=== PATIENT | female | born 1985 | race Hispanic/Latino ===

== ENCOUNTER 2022-03-16 06:51 | Emergency (ER) | payer OTHER, SELFPAY ==
[2022-03-16 07:07] VITALS: BP 118/70; PULSE 78; RESP 20; TEMP 36.7; O2SAT 97; BMI 42.0
[2022-03-16 07:43] VITALS: BP 118/74; PULSE 75; RESP 18; O2SAT 98
[2022-03-16 08:03] LABS: COVID19 -Nasal RAPID Negative (Negative)
--- NOTE | 2022-03-16 09:06 | ED.URI ---
HPI - URI/Sore Throat General Chief Complaint: Upper Respiratory Symptoms Stated Complaint: asthma; poss. sinus infection Time Seen by Provider: 03/16/22 08:49 Source: patient Mode of arrival: Ambulatory History of Present Illness HPI Narrative: Patient is a 36-year-old female who has history of asthma presents with nasal congestion body aches headache. She said multiple people at work have tested positive for COVID. She tested 4 days ago and was negative. But she is worried she might have it. She says that she uses Advair 3 times a day he has been doing it for years to help her with her breathing. She says albuterol does not help. She has had some increased difficulty breathing but she used her Advair prior to arrival and is feeling okay now. No cough Review of Systems Review of Systems Narrative: GENERAL: Denies chills, fatigue, malaise, fever, sweats, travel HEENT: See HPI RESPIRATORY: See HPI CARDIOVASCULAR: Denies chest pain, palpitations, orthopnea, edema GASTROINTESTINAL: Denies nausea, vomiting, abdominal pain, diarrhea, constipation, melena. : Denies dysuria, frequency, incontinence, hematuria, urinary retention, flank pain. MUSCULOSKELETAL: Denies weakness, joint pain, or bony pain SKIN: No rash, no erythema, no pruritus NEUROLOGIC: Denies weakness, dizziness, headache, numbness, change in speech, confusion PSYCHIATRIC: No concerning psychosocial issues. 12 point review of systems is negative except for those stated above and HPI Patient History Medical History (Updated 03/16/22 @ 09:21 by Brianna Lomeli DO) Asthma Social History Smoking Status: Never smoker Smoking Status: Never smoker Substance Use Type: does not use Exam Initial Vital Signs Initial Vital Signs: Vital Signs Temperature 98.1 F 03/16/22 07:07 Pulse Rate 78 03/16/22 07:07 Respiratory Rate 20 03/16/22 07:07 Blood Pressure 118/70 03/16/22 07:07 Pulse Oximetry 97 03/16/22 07:07 Oxygen Delivery Method 03/16/22 07:07 GENERAL: Pre 6-year-old appears to not feel well but no acute distress HEENT: Head atraumatic,EOMI, pupils reactive, face symmetric, moist mucous membranes CARDIOVASCULAR: Regular rate and rhythm without murmurs, rubs or gallops. RESPIRATORY: No respiratory distress speaks in full sentences without difficulty. Clear no wheezing rales or rhonchi. Good air movement. EXTREMITIES: Normal range of motion, no clubbing or edema. Neurovascularly intact NEUROLOGICAL: Alert and oriented x4. SKIN: Warm, dry, no laceration, no petechiae, no rashes or lesions. Course Orders Ordered: ED Orders 03/16/22 07:21 COVID19 -Nasal RAPID/Pre-Proc Stat Vital Signs Vital signs: Vital Signs - 8 hr 03/16/22 07:07 03/16/22 07:43 03/16/22 09:27 Temperature 98.1 F Pulse Rate 78 75 75 Respiratory Rate 20 18 18 Blood Pressure 118/70 118/74 118/70 Pulse Oximetry 97 98 98 Oxygen Delivery Method Room Air Room Air MDM - URI/Sore Throat Lab Data Labs: Lab Results 03/16/22 Range/Units 07:21 SARS-CoV-2 (PCR) Negative (Negative) MDM Narrative Medical decision making narrative: Patient has upper respiratory like symptoms. COVID test is negative. She is not hypoxic. Probably other virus. Recommended repeating COVID testing in 2 days just to be sure since she has had exposure at work. Discharge Plan Departure Patient Disposition: Home Clinical Impression: Upper respiratory infection Instructions: DI for Viral Upper Respiratory Infection -- Adult Activity Restrictions/Additional Instructions: *You have been diagnosed with upper respiratory infection *What to do: At this time her COVID test is negative. However I do recommend repeat home testing in about 2 days just to be sure because you have had exposure. Recommend pulse oximeter to monitor oxygen. Oxygen should be 91% or above. If it is below that you need to return to the emergency department *Continue to take medications as directed Advair to be used twice daily *Follow up with your primary care provider in 2-3 days or call [phone] *Return to ER if you should have increasing shortness of breath, not tolerating fluids or any new, worsening or concerning symptoms Stand Alone Forms: Work Release Note Visit Report Forms: Patient Portal/API
[2022-03-16 09:27] VITALS: BP 118/70; PULSE 75; RESP 18; O2SAT 98
== END 2022-03-16 09:33 | disposition home or self-care (01) ==
PROVIDERS: Emergency Provider Emergency Medicine
DX: J06.9 Acute upper respiratory infection, unspecified (principal); Z20.822 Contact with and (suspected) exposure to COVID-19
CPT/HCPCS: 87635; 99281; 99282; C9803

== ENCOUNTER 2022-03-20 23:25 | Emergency (ER) | payer OTHER, SELFPAY ==
[2022-03-20 23:32] VITALS: BP 142/66; PULSE 78; RESP 21; TEMP 37.1; O2SAT 100; BMI 43.0
--- NOTE | 2022-03-20 23:54 | DI.RAD.S_ITS ---
PROCEDURE: XR CHEST 2V INDICATIONS: eval for PNA TECHNIQUE: 2 views of the chest were acquired. COMPARISON: None. FINDINGS: Surgical changes and devices: None. Lungs and pleura: Lungs are clear. No pleural effusions or pneumothorax. Mediastinum: Mediastinal contours are normal. Heart size is normal. Bones and chest wall: No suspicious bony abnormalities. Soft tissues appear unremarkable. IMPRESSION: 1. No evidence of pneumonia. Dictated by: Dionicio Saucedo M.D. on 03/21/2022 at 0:39 Approved by: Dionicio Saucedo M.D. on 03/21/2022 at 0:40
--- NOTE | 2022-03-20 23:54 | ED.GENADULT ---
HPI - General Adult General Chief complaint: Upper Respiratory Symptoms Stated complaint: possible pnemonia Time Seen by Provider: 03/20/22 23:42 Source: patient Mode of arrival: Ambulatory History of Present Illness HPI narrative: 36-year-old female who was seen here in the emergency department several days ago for concern of a COVID exposure. Had a negative COVID test. She has a history of asthma. She states that she continues to have a productive cough and fatigue and shortness of breath on exertion. Review of Systems Constitutional Constitutional: Reports system reviewed and no additional complaints, except as documented ENT Ears, Nose, Mouth, and Throat: Reports system reviewed and no additional complaints, except as documented Respiratory Respiratory: Reports system reviewed and no additional complaints, except as documented Allergic/Immunologic Allergic/Immunologic: Reports system reviewed and no additional complaints, except as documented Patient History Medical History Asthma Social History Smoking Status: Never smoker Smoking Status: Never smoker Substance Use Type: does not use Exam Initial Vital Signs Initial Vital Signs: Vital Signs Temperature 98.8 F 03/20/22 23:32 Pulse Rate 78 03/20/22 23:32 Respiratory Rate 21 03/20/22 23:32 Blood Pressure 142/66 H 03/20/22 23:32 Pulse Oximetry 100 03/20/22 23:32 Oxygen Delivery Method 03/20/22 23:32 HENMT Head: normal to inspection and normocephalic Resp Effort & Inspection: normal respiratory effort Auscultation: clear to auscultation bilaterally Cardio Rate: regular rate Rhythm: regular rhythm Neuro General: patient alert and patient awake Course Orders Ordered: ED Orders 03/20/22 23:39 Respiratory Panel (Film Array) Stat 03/20/22 23:54 XR chest 2V Stat Vital Signs Vital signs: Vital Signs - 8 hr 03/20/22 23:32 03/21/22 00:49 Temperature 98.8 F Pulse Rate 78 64 Respiratory Rate 21 Blood Pressure 142/66 H 117/65 Pulse Oximetry 100 99 Oxygen Delivery Method Room Air Room Air Medical Decision Making Medical Records Medical records reviewed: Yes I reviewed the patient's medical records. Lab Data Lab results reviewed: Yes I reviewed the patient's lab results. Labs: Lab Results 03/20/22 Range/Units 23:39 Chlamy pneumoniae PCR Not detected (Not Detect) Adenovirus (PCR) Not detected (Not Detect) B. pertussis DNA (PCR) Not detected (Not Detecte) B.parapertussis DNA PCR Not detected (Not Detecte) Coronavirus OC43 (PCR) Not detected (Not Detect) Coronavirus HKU1 (PCR) Not detected (Not Detect) Coronavirus 229E (PCR) Not detected (Not Detect) SARS-CoV-2 (PCR) Not detected (Not Detecte) Coronavirus NL63 (PCR) Not detected (Not Detect) Human Metapneumovir PCR Not detected (Not Detect) Influenza Type A (PCR) Not detected (Not Detect) Influenza Type B (PCR) Not detected (Not Detect) M. pneumoniae (PCR) Not detected (Not Detect) Parainfluenza 1 (PCR) Not detected (Not Detect) Parainfluenza 2 (PCR) Not detected (Not Detect) Parainfluenza 3 (PCR) Not detected (Not Detect) Parainfluenza 4 (PCR) Not detected (Not Detect) RSV (PCR) Not detected (Not Detect) Entero/Rhino (PCR) Not detected (Not Detect) Imaging Data Chest x-ray: Radiologist's Impression: [address] [address] XRay Report Signed Patient: Cass Espinoza MR#: [id number] : 1985 Acct:[id number] Age/Sex: 36 / F Date of Service: 03/20/22 Loc: ED Accession Number: [id number] ?? Procedure: XR chest 2V Ordering Provider: Lester Messina D.O. PROCEDURE:? XR CHEST 2V ? INDICATIONS:? eval for PNA ? TECHNIQUE:? 2 views of the chest were acquired.? ? COMPARISON:? None. ? FINDINGS:? ? Surgical changes and devices:? None.? ? Lungs and pleura:? Lungs are clear.? No pleural effusions or pneumothorax.? ? Mediastinum:? Mediastinal contours are normal.? Heart size is normal.? ? Bones and chest wall:? No suspicious bony abnormalities.? Soft tissues appear unremarkable.? ? IMPRESSION:? ? 1. No evidence of pneumonia. ? ? Dictated by: Dionicio Saucedo M.D. on 03/21/2022 at 0:39 ? ? Approved by: Dionicio Saucedo M.D. on 03/21/2022 at 0:40?? [facility] Narrative Medical decision making narrative: Not hypoxic. No respiratory distress. Respiratory panel negative. Chest x-ray is negative. Clear lung exam. She is coughing. Afebrile. No indication for antibiotics. Suspect viral upper respiratory. No indication for admission to the hospital. Will have her continue with her current course of treatment. She is given return precautions. She expressed understanding agreement. Discharge Plan Departure Patient Disposition: Home Clinical Impression: Cough, Fatigue Instructions: Cough Activity Restrictions/Additional Instructions: Continue to take all of your medications as directed. Continue to take the Zyrtec. Contact your primary doctor for a follow-up. Return to the emergency department for any new or worsening symptoms. Visit Report Forms: Patient Portal/API
[2022-03-21 00:35] LABS: Adenovirus Not Detected (Not Detect); B. parapertussis Not Detected (Not Detecte); Bordetella pertussis Not Detected (Not Detecte); Chlamydophila pneumoniae Not Detected (Not Detect); Coronavirus 229E Not Detected (Not Detect); Coronavirus HKU1 Not Detected (Not Detect); Coronavirus NL 63 Not Detected (Not Detect); Coronavirus OC43 Not Detected (Not Detect); Human Metapneumovirus Not Detected (Not Detect); Human Rhinovirus/Enterovirus Not Detected (Not Detect); Influenza A Not Detected (Not Detect); Influenza B Not Detected (Not Detect); Mycoplasma pneumoniae Not Detected (Not Detect); Parainfluenza Virus 1 Not Detected (Not Detect); Parainfluenza Virus 2 Not Detected (Not Detect); Parainfluenza Virus 3 Not Detected (Not Detect); Parainfluenza Virus 4 Not Detected (Not Detect); Respiratory Syncytial Virus Not Detected (Not Detect); SARS- CoV-2 Not Detected (Not Detecte)
[2022-03-21 00:49] VITALS: BP 117/65; PULSE 64; O2SAT 99
== END 2022-03-21 00:52 | disposition home or self-care (01) ==
PROVIDERS: Emergency Provider Emergency Medicine
DX: R05.9 Cough, unspecified (principal); R53.83 Other fatigue
CPT/HCPCS: 71046; 87633; 99281; 99283

== ENCOUNTER 2022-06-10 02:06 | Emergency (ER) | payer OTHER, SELFPAY ==
[2022-06-10 02:13] VITALS: BP 139/70; PULSE 74; RESP 18; TEMP 36.5; O2SAT 93; BMI 41.0
--- NOTE | 2022-06-10 02:16 | ED_ITS ---
HPI - Abdominal Pain General Chief Complaint: Abdominal Pain Stated Complaint: ABD. PAIN/WEAK Time Seen by Provider: 06/10/22 02:13 Source: patient Mode of arrival: Ambulatory History of Present Illness HPI narrative: 36-year-old female nonsmoker with history of asthma presents with a chief complaint of crampy and colicky lower abdominal pain over the course of the day if not longer. She states there is no obvious provocation or palliation nor radiation of her symptoms. She is had constipation by and large but also some elements of diarrhea. She denies any change in her diet but states that she works for 10 hours and has very little to drink and is concerned she is dehydrated. She feels a bit weak but not dizzy. She denies chest pain or shortness of breath and has had no fever chills. She denies dysuria, frequency or urgency but states it she will be unable to pee for us because she has not had anything to drink Related Data Allergies Allergy/AdvReac Type Severity Reaction Status Date / Time No Known Drug Allergies Allergy Verified 06/10/22 02:16 Review of Systems Review of Systems Narrative: GENERAL: See HPI HEENT: Denies sinus pain, ear pain, sore throat, difficulty swallowing, dizziness. RESPIRATORY: Denies dyspnea, cough, wheezing, hemoptysis, sputum. CARDIOVASCULAR: Denies chest pain, palpitations, orthopnea, edema, GASTROINTESTINAL: See HPI : Denies dysuria, frequency, incontinence, hematuria, urinary retention. MUSCULOSKELETAL: denies weakness, joint pain, or bony pain SKIN: Denies rash, skin lesions, or other NEUROLOGIC: Denies weakness, headache, numbness, change in speech, confusion, seizures, incoordination. PSYCHIATRIC: No concerning psychosocial issues. 12 point review of systems is negative except for those stated above Patient History Medical History Asthma Social History Smoking Status: Never smoker Smoking Status: Never smoker Substance Use Type: does not use Exam Narrative Exam Narrative: GENERAL: [36] year old patient appears stated age. Well-developed patient, in mild distress. HEAD: Atraumatic. Normocephalic. EYES: Pupils equal round and reactive. Extraocular motions intact. No scleral icterus. No injection or drainage. ENT: Nose without bleeding, purulent drainage. Throat without erythema, tonsillar hypertrophy or exudate. Airway patent. NECK: Trachea midline. Non tender CARDIOVASCULAR: Regular rate and rhythm without murmurs, gallops, or rubs. RESPIRATORY: Clear to auscultation. Breath sounds equal bilaterally. No wheezes, rales, or rhonchi. GASTROINTESTINAL: Abdomen soft, non-tender, nondistended. Bowel sounds present in all 4 quadrants EXTREMITIES: No edema or joint tenderness. BACK: Nontender without deformity or crepitance. No flank tenderness. NEURO: AOx3. SKIN: No rash or erythema of visible areas Initial Vital Signs Initial Vital Signs: Vital Signs Temperature 97.7 F 06/10/22 02:13 Pulse Rate 74 06/10/22 02:13 Respiratory Rate 18 06/10/22 02:13 Blood Pressure 139/70 06/10/22 02:13 Pulse Oximetry 93 06/10/22 02:13 Oxygen Delivery Method 06/10/22 02:13 Course Orders Ordered: ED Orders 06/10/22 02:39 XR acute abdomen series Stat 06/10/22 02:45 Complete Blood Count AUTO DIFF Stat Comprehensive Metabolic Panel Stat Lipase Stat Test Serum,Qual Stat Discontinued Medications Sodium Chloride (Normal Saline 0.9%) 1,000 mls @ 1,000 mls/hr IV BOLUS ONE Stop: 06/10/22 03:38 Last Infusion: 06/10/22 05:16 Dose: 0 mls/hr Documented By: Admin: 06/10/22 03:04 Dose: 1,000 mls/hr Documented By: ALVARADO Reevaluation(s) Reevaluation #1: Patient has significant if not complete resolution of symptoms after above- stated therapies Vital Signs Vital signs: Vital Signs - 8 hr 06/10/22 02:13 Temperature 97.7 F Pulse Rate 74 Respiratory Rate 18 Blood Pressure 139/70 Pulse Oximetry 93 Oxygen Delivery Method Room Air MDM - Abdominal Pain Lab Data Result diagrams: 06/10/22 02:45 06/10/22 02:45 Labs: Lab Results 06/10/22 06/10/22 06/10/22 Range/Units 02:45 02:45 02:45 WBC 9.7 (4.5-11.0) X10^3/uL RBC 4.72 (4.0-5.2) X10^6/uL Hgb 14.1 (12.0-16.0) g/dL Hct 41.1 (36-46) % MCV 87.0 (80-100) fL MCH 29.8 (26-34) PG MCHC 34.3 (30-36) % RDW 13.7 (11.6-14.8) % Plt Count 354 (150-400) X10^3/uL Neut % (Auto) 56.7 (50-75) % Lymph % (Auto) 27.5 (25-40) % [place] % (Auto) 8.8 (3-14) % Eos % (Auto) 6.3 H (2-4) % Baso % (Auto) 0.7 (0-2) % Neut # (Auto) 5500 (8602-2880) /uL Lymph # (Auto) 2700 (4405-8666) /uL [place] # (Auto) 900 (0-900) /uL Eos # (Auto) 600 H (0-450) /uL Baso # (Auto) 100 (0-100) /uL Sodium 136 L (137-145) mmol/L Potassium 3.9 (3.4-5.1) mmol/L Chloride 102 (98-107) mmol/L Carbon Dioxide 29 (22-32) mmol/L BUN 18 H (7-17) mg/dL Creatinine 0.70 (0.52-1.04) mg/dL Estimated GFR > 60 (>60) mL/min BUN/Creatinine Ratio 25.7 H (6-22) Glucose 97 (70-100) mg/dL Calcium 8.7 (8.4-10.2) mg/dL Total Bilirubin 0.3 (0.2-1.3) mg/dL AST 29 (14-36) IU/L ALT 31 (<35) IU/L Alkaline Phosphatase 70 (38-126) U/L Total Protein 7.9 (6.3-8.2) g/dL Albumin 4.3 (3.5-5.0) g/dL Globulin 3.6 (1.7-4.1) g/dL Albumin/Globulin Ratio 1.2 (1.0-2.8) Lipase 109 (23-300) U/L Serum , Qual Negative (Negative) Point of care testing: Point of Care Testing Test Results Negative Urine Dip Bedside Urine Glucose Negative Bedside Urine Bilirubin - Negative Bedside Urine Ketone - Negative Urine Specific [place] 1.025 Bedside Urine Occult Blood +/- Bedside Urine pH 6.0 Bedside Urine Protein - Negative Bedside Urine Urobilinogen - Negative Bedside Urine Nitrite - Negative Bedside Urine Leukocytes - Negative Esterase Imaging Data Abdominal x-ray: My Impression: Nonspecific bowel gas pattern, no obstruction, large stool burden consistent with constipation MDM Narrative Medical decision making narrative: Patient with very reassuring history and physical exam. Labs are unremarkable, no sign of infection or significant abnormality, imaging suggestive of constipation. Patient reports feeling dehydrated but demonstrates no obvious sign of significant dehydration though she does feel great improvement after fluids. Abdominal pain is well controlled, she is tolerating orals and requesting discharge. Return precautions have been discussed and questions answered to her apparent satisfaction Discharge Plan Departure Patient Disposition: Home Clinical Impression: Abdominal pain Instructions: DI for Abdominal Pain-Adult Activity Restrictions/Additional Instructions: *You have been diagnosed with [ abdominal pain most likely due to constipation ] *What to do: *Take over the counter medications as directed: 1. Metamucil - is a bulk forming laxative and adds fiber 2. Colace - softens your stool 3. Dulcolax suppository - stimulates your bowels *Follow up with your primary care provider in 2-3 days, call for appointment *Return to ER if you should have any new, worsening or concerning symptoms *Drink plenty of water and eat foods high in fiber *Stay as active as you can as this helps move your bowels as well Stand Alone Forms: Work Release Note Visit Report Forms: Patient Portal/API
--- NOTE | 2022-06-10 02:39 | DI.RAD.S_ITS ---
PROCEDURE: XR ACUTE ABDOMEN SERIES INDICATIONS: colicky abdominal pain TECHNIQUE: One view chest and for views of the abdomen were acquired. COMPARISON: None. FINDINGS: Surgical changes and devices: None. Chest: Lungs are clear. Heart size is normal. No pleural effusions. No pneumoperitoneum. Abdomen: Bowel gas pattern is normal. No suspicious calcifications. Visualized solid organ contours appear normal. Large stool volume. Bones: No suspicious bony lesions. IMPRESSION: 1. No evidence of obstruction. 2. Large stool volume. No significant discrepancy from overnight interpretation Dictated by: Cong Gooden M.D. on 06/10/2022 at 7:02 Approved by: Cong Gooden M.D. on 06/10/2022 at 7:03
[2022-06-10 02:57] LABS: Add Manual Diff / Slide Review NO; Basophils Absolute Auto 100 /uL (0-100); Basophils Percent Auto 0.7 % (0-2); Eosinophils Absolute Auto 600 /uL (0-450); Eosinophils Percent Auto 6.3 % (2-4); Hematocrit 41.1 % (36-46); Hemoglobin 14.1 g/dL (12.0-16.0); Lymphocytes Absolute Auto 2700 /uL (1100-4500); Lymphocytes Percent Auto 27.5 % (25-40); Mean Corpuscular HGB Conc 34.3 % (30-36); Mean Corpuscular Hemoglobin 29.8 PG (26-34); Monocytes Absolute Auto 900 /uL (0-900); Monocytes Percent Auto 8.8 % (3-14); Neutrophils Absolute Auto 5500 /uL (1500-7000); Neutrophils Percent Auto 56.7 % (50-75); Platelet Count 354 X10^3/uL (150-400); Red Blood Cell Count 4.72 X10^6/uL (4.0-5.2); Red Cell Distribution Width 13.7 % (11.6-14.8); White Blood Cell Count 9.7 X10^3/uL (4.5-11.0)
[2022-06-10] MEDS: SODIUM CHLORIDE 0.9% 1,000 ML 1000 ML IV (03:04)
[2022-06-10 03:05] LABS: Alanine Aminotransferase 31 IU/L (<35); Albumin 4.3 g/dL (3.5-5.0); Albumin Globulin Ratio 1.2 (1.0-2.8); Alkaline Phosphatase 70 U/L (38-126); Aspartate Aminotransferase 29 IU/L (14-36); BUN Creatinine Ratio 25.7 (6-22); Bilirubin Total 0.3 mg/dL (0.2-1.3); Blood Urea Nitrogen 18 mg/dL (7-17); Calcium 8.7 mg/dL (8.4-10.2); Carbon Dioxide 29 mmol/L (22-32); Chloride 102 mmol/L (98-107); Estimated Glomerular Filt Rate > 60 mL/min (>60); Globulin 3.6 g/dL (1.7-4.1); Glucose 97 mg/dL (70-100); HEMOLYSIS 27 (0-50); Lipase 109 U/L (23-300); Potassium 3.9 mmol/L (3.4-5.1); Sodium 136 mmol/L (137-145); Total Protein 7.9 g/dL (6.3-8.2)
[2022-06-10 03:10] LABS: Pregnancy Test Serum,Qual Negative (Negative)
== END 2022-06-10 05:17 | disposition home or self-care (01) ==
PROVIDERS: Emergency Provider Emergency Medicine
DX: R10.30 Lower abdominal pain, unspecified (principal)
CPT/HCPCS: 36415; 74022; 80053; 81003; 81025; 83690; 84703; 85025; 99284

== ENCOUNTER 2022-06-22 00:52 | Emergency (ER) | payer OTHER, SELFPAY ==
[2022-06-22 01:13] VITALS: BP 112/58; PULSE 85; RESP 18; TEMP 36.2; O2SAT 99; BMI 41.0
== END 2022-06-22 01:33 | disposition left against medical advice (07) ==
PROVIDERS: Emergency Provider Emergency Medicine; PCP Physician Assistant
CPT/HCPCS: 99281

== ENCOUNTER 2022-06-23 04:48 | Emergency (ER) | payer OTHER, SELFPAY ==
--- NOTE | 2022-06-23 04:56 | DI.RAD.S_ITS ---
PROCEDURE: XR CHEST 2V INDICATIONS: shortness of breath TECHNIQUE: 2 views of the chest were acquired. COMPARISON: [facility], , XR CHEST 2V, 03/20/2022, 23:45. FINDINGS: Surgical changes and devices: None. Lungs and pleura: Lungs are clear. No pleural effusions or pneumothorax. Mediastinum: Mediastinal contours are normal. Heart size is normal. Bones and chest wall: No suspicious bony abnormalities. Soft tissues appear unremarkable. IMPRESSION: Normal two view chest x-ray Approved by: August Orr M.D. on 06/23/2022 at 6:42
[2022-06-23 04:58] VITALS: BP 121/58; PULSE 85; RESP 20; TEMP 36.9; O2SAT 95; BMI 37.0
--- NOTE | 2022-06-23 05:03 | ED.GENADULT ---
HPI - General Adult General Chief complaint: Shortness of Breath/Dyspnea Stated complaint: COUGH/ASTHMA Time Seen by Provider: 06/23/22 04:56 Source: patient Mode of arrival: Ambulatory History of Present Illness HPI narrative: 36-year-old woman with a history of asthma typically uses Advair and albuterol, recently [facility] to the [facility] and does not have an appointment with a new physician until Saturday of next week and has been out of her inhalers for the last 10 days. Her cough and wheeze has been getting progressively worse. She gets routinely tested for COVID at work and has continued to be negative. She does not describe fevers or myalgias. The cough is dry and sounds very much like asthma. She describes no chest pain, lower extremity edema, abdominal pain, vomiting, diarrhea. Related Data Previous Rx's Medication Instructions Recorded albuterol sulfate 90 mcg/actuation 2 puff inhalation Q6H PRN 06/23/22 aerosol inhaler shortness of breath or wheezing #8.5 grams fluticasone 100 mcg-salmeterol 50 1 inh inhalation BID #60 ea 06/23/22 mcg/dose blistr powdr for inhalation (Advair Diskus) methylprednisolone 4 mg tablets in 4 mg PO DAILY #21 ea 06/23/22 a dose pack (Medrol (Akash)) Allergies Allergy/AdvReac Type Severity Reaction Status Date / Time No Known Drug Allergies Allergy Verified 06/10/22 02:16 Review of Systems Review of Systems Narrative: Remainder of complete review of systems is otherwise unremarkable except for that included in the HPI. Patient History Medical History Asthma Social History Smoking Status: Never smoker Smoking Status: Never smoker Substance Use Type: does not use Exam Initial Vital Signs Initial Vital Signs: Vital Signs Temperature 98.5 F 06/23/22 04:58 Pulse Rate 85 06/23/22 04:58 Respiratory Rate 20 06/23/22 04:58 Blood Pressure 121/58 L 06/23/22 04:58 Pulse Oximetry 95 06/23/22 04:58 Oxygen Delivery Method 06/23/22 04:58 General: Healthy appearing, in no acute distress. Able to give a complete and coherent history. Well-nourished well-developed HEENT: Moist mucous membranes, normal sclera with reactive pupils, Respiratory: Able to speak in 5-6 word sentences, lungs with scattered wheezes in all lung reyes, dry cough, no consolidated findings, minimal accessory muscle use, Full and symmetrical air movement Cardiac: Regular rate and rhythm no murmurs no bruits Abdomen: Soft, nontender, good bowel tones, no flank pain Skin: Warm and dry, no rashes Neurologic: Grossly neurologically intact with no obvious asymmetries or abnormalities Extremities: No trauma, well perfused Psych: Cooperative, appropriate insight and affect Course Orders Ordered: ED Orders 06/23/22 04:56 XR chest 2V Stat Discontinued Medications Albuterol (Albuterol 2.5 Mg/3 Ml Neb (Adult)) 2.5 mg INH NOW ONE Stop: 06/23/22 05:08 Last Admin: 06/23/22 05:10 Dose: 2.5 mg Documented By: Albuterol (Albuterol 2.5 Mg/3 Ml Neb (Adult)) 2.5 mg INH NOW ONE Stop: 06/23/22 05:12 Last Admin: 06/23/22 05:12 Dose: 2.5 mg Documented By: Prednisone (Prednisone 20 Mg Tablet) 60 mg PO NOW ONE Stop: 06/23/22 05:09 Last Admin: 06/23/22 05:16 Dose: 60 mg Documented By: EB Vital Signs Vital signs: Vital Signs - 8 hr 06/23/22 04:58 06/23/22 05:07 Temperature 98.5 F Pulse Rate 85 83 Respiratory Rate 20 24 Blood Pressure 121/58 L Pulse Oximetry 95 Oxygen Delivery Method Room Air Room Air Medical Decision Making [facility] Narrative Medical decision making narrative: 36-year-old woman with asthma who has been out of her inhalers for 10 days and does not have an appointment with her primary care doctor for an additional 8 days. She states that when she typically gets to this point she benefits from Medrol Dosepak. She is not complaining of fever or myalgias and I do not suspect acute infectious etiology at this time. A will go ahead and refill her Advair, albuterol and a Medrol Dosepak. She is safe for discharge Discharge Plan Departure Patient Disposition: Home Clinical Impression: Asthma with exacerbation Instructions: DI for Asthma -- Adult Activity Restrictions/Additional Instructions: Thank you for coming in this evening I am sorry that your asthma seems to be flaring. I have refilled your Advair Diskus, albuterol inhaler and given you a Medrol Dosepak. Based under clinical exam I suspect that all of your symptoms are asthma related and am not worried about a bacterial pneumonia at this time. I encourage you to keep your appointment with your new primary care physician next week If you find that you are getting worse or develop any new symptoms, please feel free to return to the emergency department for further evaluation. Prescriptions: New fluticasone propion-salmeterol [Advair Diskus] 100-50 mcg/dose blister with device 1 inh inhalation BID Qty: 60 3RF albuterol sulfate 90 mcg/actuation HFA aerosol inhaler 2 puff inhalation Q6H PRN (Reason: shortness of breath or wheezing) Qty: 8.5 3RF methylprednisolone [Medrol (Akash)] 4 mg tablets,dose pack 4 mg PO DAILY Qty: 21 0RF Referrals: Gogo Lopez PA-C [Primary Care Provider] -
[2022-06-23 05:07] VITALS: PULSE 83; RESP 24
[2022-06-23] MEDS: ALBUTEROL 2.5 MG/3 ML NEB (ADULT) INH ×2 (05:10→05:12)
[2022-06-23] MEDS: predniSONE 20 MG TABLET 60 MG PO (05:16)
[2022-06-23 05:45] VITALS: PULSE 90; RESP 18; O2SAT 96
== END 2022-06-23 05:45 | disposition home or self-care (01) ==
PROVIDERS: Emergency Provider Emergency Medicine; PCP Physician Assistant
DX: J45.901 Unspecified asthma with (acute) exacerbation (principal)
CPT/HCPCS: 71046; 94640; 99283; J7613

== ENCOUNTER 2022-07-11 21:17 | Emergency (ER) | payer OTHER, SELFPAY ==
[2022-07-11] VITALS (10 sets, daily range): BP systolic 131–135; BP diastolic 64–66; PULSE 47–112; RESP 18–22; TEMP 37.3; O2SAT 88–100; BMI 41.0
[2022-07-11] MEDS: ALBUTEROL/IPRATROPIUM 3 ML AMPUL INH ×2 (21:47→22:18)
[2022-07-11] MEDS: ALBUTEROL 2.5 MG/3 ML NEB (ADULT) INH ×2 (21:49→22:18)
--- NOTE | 2022-07-11 23:25 | ED.SOB ---
HPI - SOB/Dyspnea General Chief Complaint: Shortness of Breath/Dyspnea Stated Complaint: asthma, cough Time Seen by Provider: 07/11/22 21:43 Source: patient Mode of arrival: Ambulatory Limitations: no limitations History of Present Illness HPI Narrative: Patient is a 36-year-old female history of asthma and allergies presenting today with increasing shortness of breath ongoing for last 2 days. She says that she has never been intubated but has been hospitalized for his at her asthma before. She previously had well-controlled asthma however she moved [place] it seems to have gotten worse. She said she stopped taking her allergy medicine over the weekend with her breathing got to be much worse over last 2 days. She did have some body aches but she has had multiple home negative COVID test no significant productive. She has now received multiple albuterol treatments prior to my evaluation in overall so that she is feeling significantly better. She was previously evaluated on June 23 for the same she also states that she ran out of her Advair and is waiting to see a primary care provider before it is getting refill. Related Data Previous Rx's Medication Instructions Recorded albuterol sulfate 90 mcg/actuation 2 puff inhalation Q6H PRN 06/23/22 aerosol inhaler shortness of breath or wheezing #8.5 grams fluticasone 100 mcg-salmeterol 50 1 inh inhalation BID #60 ea 06/23/22 mcg/dose blistr powdr for inhalation (Advair Diskus) methylprednisolone 4 mg tablets in 4 mg PO DAILY #21 ea 06/23/22 a dose pack (Medrol (Akash)) albuterol sulfate 90 mcg/actuation 2 puff inhalation Q4-6H PRN 07/11/22 aerosol inhaler shortness of breath or wheezing #8.5 grams fluticasone propionate 230 2 puff inhalation BID #12 grams 07/11/22 mcg-salmeterol 21 mcg/actuation HFA inhaler (Advair HFA) prednisone 20 mg tablet 40 mg PO DAILY #10 tabs 07/11/22 Allergies Allergy/AdvReac Type Severity Reaction Status Date / Time No Known Drug Allergies Allergy Verified 07/11/22 21:31 Review of Systems Review of Systems Narrative: GENERAL: Denies chills, fatigue, malaise, fever, sweats, travel HEENT: Denies sinus pain, ear pain, sore throat, difficulty swallowing, neck pain RESPIRATORY: See HPI CARDIOVASCULAR: Denies chest pain, palpitations, orthopnea, edema GASTROINTESTINAL: Denies nausea, vomiting, abdominal pain, diarrhea, constipation, melena. : Denies dysuria, frequency, incontinence, hematuria, urinary retention, flank pain. MUSCULOSKELETAL: Denies weakness, joint pain, or bony pain SKIN: No rash, no erythema, no pruritus NEUROLOGIC: Denies weakness, dizziness, headache, numbness, change in speech, confusion PSYCHIATRIC: No concerning psychosocial issues. 12 point review of systems is negative except for those stated above and HPI Patient History Medical History Asthma Social History Smoking Status: Never smoker Smoking Status: Never smoker alcohol intake frequency: 0-2 drinks per day Substance Use Type: does not use Exam Initial Vital Signs Initial Vital Signs: Vital Signs Temperature 99.2 F 07/11/22 21:27 Pulse Rate 94 H 07/11/22 21:27 Respiratory Rate 22 07/11/22 21:27 Blood Pressure 131/66 07/11/22 21:27 Pulse Oximetry 98 07/11/22 21:27 Oxygen Delivery Method 07/11/22 21:27 GENERAL: Pleasant alert 36-year-old female HEENT: Head atraumatic,EOMI, pupils reactive, face symmetric, moist mucous membranes CARDIOVASCULAR: Regular rate and rhythm without murmurs, rubs or gallops. RESPIRATORY: Coughing with deep breaths speaks in full sentences mild expiratory wheezing no respiratory distress ABDOMEN: Soft, nontender. Normoactive bowel sounds all 4 quadrants. No guarding or rebound. EXTREMITIES: Normal range of motion, no clubbing or edema. Neurovascularly intact NEUROLOGICAL: Alert and oriented x4.Normal gait and speech. SKIN: Warm, dry, no laceration, no petechiae, no rashes or lesions. Course Orders Ordered: ED Orders 07/11/22 21:31 RT Consult Eval and Treat NOW Discontinued Medications Albuterol (Albuterol 2.5 Mg/3 Ml Neb (Adult)) 2.5 mg INH NOW ONE Stop: 07/11/22 21:49 Last Admin: 07/11/22 21:49 Dose: 2.5 mg Documented By: BLF Albuterol (Albuterol 2.5 Mg/3 Ml Neb (Adult)) 2.5 mg INH NOW ONE Stop: 07/11/22 22:16 Last Admin: 07/11/22 22:18 Dose: 2.5 mg Documented By: BALTA Albuterol/Ipratropium (Albuterol/Ipratropium 3 Ml Ampul) 3 ml INH NOW ONE Stop: 07/11/22 21:44 Last Admin: 07/11/22 21:47 Dose: 3 ml Documented By: BALTA Albuterol/Ipratropium (Albuterol/Ipratropium 3 Ml Ampul) 3 ml INH NOW ONE Stop: 07/11/22 22:16 Last Admin: 07/11/22 22:18 Dose: 3 ml Documented By: BALTA Prednisone (Prednisone 20 Mg Tablet) 40 mg PO NOW ONE Stop: 07/11/22 23:26 Last Admin: 07/11/22 23:38 Dose: 40 mg Documented By: LAURA Vital Signs Vital signs: Vital Signs - 8 hr 07/11/22 21:27 07/11/22 21:53 07/11/22 22:21 Temperature 99.2 F Pulse Rate 94 H 93 H 112 H Respiratory Rate 22 18 18 Blood Pressure 131/66 Pulse Oximetry 98 96 96 Oxygen Delivery Method Room Air Room Air Room Air 07/11/22 21:27 07/11/22 21:30 07/11/22 22:00 Temperature Pulse Rate 94 H 92 H 98 H Respiratory Rate Blood Pressure Pulse Oximetry 97 98 100 Oxygen Delivery Method 07/11/22 22:30 07/11/22 23:00 07/11/22 23:30 Temperature Pulse Rate 109 H 47 L 111 H Respiratory Rate Blood Pressure Pulse Oximetry 100 88 L 95 Oxygen Delivery Method 07/11/22 23:39 07/11/22 23:40 Temperature Pulse Rate 109 H Respiratory Rate Blood Pressure 135/64 Pulse Oximetry 97 Oxygen Delivery Method MDM - SOB/Dyspnea MDM Narrative Medical decision making narrative: Patient has been out of her preventative medication stop taking allergy medication. Likely causing 2 recent exacerbations. She has had multiple negative COVID test no need to test her now. She overall is feeling better. She is offered marked however declines at this time. Her lungs sound okay she had an x-ray that was-2 weeks ago no need for repeating her x-ray. Discharge Plan Departure Patient Disposition: Home Clinical Impression: Asthma with exacerbation Instructions: DI for Asthma -- Adult Activity Restrictions/Additional Instructions: *You have been diagnosed with asthma exacerbation *What to do: At this time I do recommend she continue to take allergy medications. Please see a primary care provider *Continue to take medications as directed Advair 2 puffs by mouth twice a day and as needed for cough or week Albuterol 1-2 puffs every 4 hours if needed for shortness of breath or wheezing Prednisone 40 mg once a day for 5 days *Follow up with your primary care provider in 2-3 days or call [phone] *Return to ER if you should have increasing shortness of breath cough fevers or any new, worsening or concerning symptoms Prescriptions: New prednisone 20 mg tablet 40 mg PO DAILY Qty: 10 0RF albuterol sulfate 90 mcg/actuation HFA aerosol inhaler 2 puff INHALATION Q4-6H PRN (Reason: shortness of breath or wheezing) Qty: 8.5 0RF Advair HFA 230-21 mcg/actuation HFA aerosol inhaler 2 puff inhalation BID Qty: 12 0RF No Action fluticasone propion-salmeterol [Advair Diskus] 100-50 mcg/dose blister with device 1 inh inhalation BID Qty: 60 3RF albuterol sulfate 90 mcg/actuation HFA aerosol inhaler 2 puff inhalation Q6H PRN (Reason: shortness of breath or wheezing) Qty: 8.5 3RF methylprednisolone [Medrol (Akash)] 4 mg tablets,dose pack 4 mg PO DAILY Qty: 21 0RF Referrals: Gogo Lopez PA-C [Primary Care Provider] - Visit Report Forms: Patient Portal/API
[2022-07-11] MEDS: predniSONE 20 MG TABLET 40 MG PO (23:38)
== END 2022-07-11 23:59 | disposition home or self-care (01) ==
PROVIDERS: Emergency Provider Emergency Medicine; PCP Physician Assistant
DX: J45.901 Unspecified asthma with (acute) exacerbation (principal)
CPT/HCPCS: 94640; 99283; J7613

== ENCOUNTER 2022-07-13 11:35 | Emergency (ER) | payer OTHER, SELFPAY ==
[2022-07-13 12:19] VITALS: BP 124/79; PULSE 82; RESP 18; TEMP 36.8; O2SAT 96; BMI 41.0
--- NOTE | 2022-07-13 12:58 | DI.RAD.S_ITS ---
PROCEDURE: XR CHEST 2V INDICATIONS: cough TECHNIQUE: 2 views of the chest were acquired. COMPARISON: [facility], CR, XR CHEST 2V, 06/23/2022, 5:14. [facility], CR, XR CHEST 2V, 03/20/2022, 23:45. FINDINGS: Surgical changes and devices: None. Lungs and pleura: Lungs are clear except for a linear band of increased radiodensity within the right middle lobe, consistent with mild or early pneumonia in this clinical circumstance. No pleural effusions or pneumothorax. Mediastinum: Mediastinal contours are normal. Heart size is normal. Bones and chest wall: No suspicious bony abnormalities. Soft tissues appear unremarkable. IMPRESSION: Mild or early pneumonia right middle lobe. Dictated by: Dante Shepherd M.D. on 07/13/2022 at 13:16 Approved by: Dante Shepherd M.D. on 07/13/2022 at 13:17
--- NOTE | 2022-07-13 13:37 | ED.URI ---
HPI - URI/Sore Throat <Eugenio Earl PA-C - Last Filed: 07/13/22 14:57> General Chief Complaint: Upper Respiratory Symptoms Stated Complaint: Thinks pnuemonia, fever, green mucus Time Seen by Provider: 07/13/22 12:45 Source: patient Mode of arrival: Ambulatory History of Present Illness HPI Narrative: Patient is a 36-year-old female who presents to the emergency room today with complaint of chest pain shortness of breath productive cough of greenish patient's fatigue and sinus congestion sinus congestion. States these symptoms initially started on Saturday night. Admits to attending a wedding on Saturday. Also admits that she has sore throat and swelling that started on Saturday. States she was seen in this emergency room on Saturday for exacerbation of her asthma and her main concern at that time which has shortness of breath. At her emergency room visit she received nebulizers States that since then her symptoms of chest pain cough fatigue sinus congestion and shortness of breath return. Admits to having had exacerbation of asthma COVID and pneumonia in October of this year. Also admits to history of urinary tract infections and would like to have that ruled out today to Also brings her daughter in today and states her daughter has had cough and runny nose and she wanted to have her checked out too. Related Data Previous Rx's Medication Instructions Recorded albuterol sulfate 90 mcg/actuation 2 puff inhalation Q6H PRN 06/23/22 aerosol inhaler shortness of breath or wheezing #8.5 grams fluticasone 100 mcg-salmeterol 50 1 inh inhalation BID #60 ea 06/23/22 mcg/dose blistr powdr for inhalation (Advair Diskus) methylprednisolone 4 mg tablets in 4 mg PO DAILY #21 ea 06/23/22 a dose pack (Medrol (Akash)) albuterol sulfate 90 mcg/actuation 2 puff inhalation Q4-6H PRN 07/11/22 aerosol inhaler shortness of breath or wheezing #8.5 grams fluticasone propionate 230 2 puff inhalation BID #12 grams 07/11/22 mcg-salmeterol 21 mcg/actuation HFA inhaler (Advair HFA) prednisone 20 mg tablet 40 mg PO DAILY #10 tabs 07/11/22 doxycycline hyclate 100 mg tablet 100 mg PO BID #10 tabs 07/13/22 Allergies Allergy/AdvReac Type Severity Reaction Status Date / Time No Known Drug Allergies Allergy Verified 07/11/22 21:31 Review of Systems <Eugenio Earl PA-C - Last Filed: 07/13/22 14:57> Review of Systems Narrative: R.O.S.: General: No fever, chills or fatigue. Cardiovascular: No chest pain or palpitations Respiratory: Chest pain shortness of breath productive cough nasal congestion and fatigue. HEENT: No congestion, ear pain, rhinorrhea, sore throat or tinnitus Gastrointestinal: No nausea or vomiting : No urinary concerns Skin: No rash or associated abnormalities Musculoskeletal: No pain in muscles or joints, no limitation of range of motion, no paresthesia or numbness. ?? Neurological: Awake, alert and in not apparent distress. No Headaches, changes in vision or other related neurological concerns. Patient History <RODDY Fabian Last Filed: 07/13/22 14:57> Medical History Asthma Social History Smoking Status: Never smoker Smoking Status: Never smoker alcohol intake frequency: 0-2 drinks per day Substance Use Type: does not use Exam <RODDY Fabian Last Filed: 07/13/22 14:57> Narrative Exam Narrative: Physical Exam: ? General: normal appearance, well developed, well nourished, alert, and awake. Not in acute distress. ? Head: Normocephalic, no lesions. Chest: Exp. Wheezes RUL and RML. ?? Heart: RRR, no murmurs, rubs or gallops. Eyes: PERRLA, EOM's full, conjunctivae clear. ? Neuro: Physiological, no localizing findings, CN3-12 intact. ?? Extremities: Warm, well perfused, FROM, no deformities, no edema. ?? Skin: Normal, no rashes, no lesions noted. ?? PSYCHIATRIC: The mood is good, no blunted affect. Speech is clear. Thought process is linear, thought content is appropriate. The voice is without significant inflection. Gastrointestinal: Soft; NT; ND; Pos BS with Neg. rebound tenderness. No scars or major deformities noted on Visual Inspection. Initial Vital Signs Initial Vital Signs: Vital Signs Temperature 98.2 F 07/13/22 12:19 Pulse Rate 82 07/13/22 12:19 Respiratory Rate 18 07/13/22 12:19 Blood Pressure 124/79 07/13/22 12:19 Pulse Oximetry 96 07/13/22 12:19 Oxygen Delivery Method 07/13/22 12:19 <Lester Messina DO - Last Filed: 07/13/22 16:03> Initial Vital Signs Initial Vital Signs: Vital Signs Temperature 98.2 F 07/13/22 12:19 Pulse Rate 82 07/13/22 12:19 Respiratory Rate 18 07/13/22 12:19 Blood Pressure 124/79 07/13/22 12:19 Pulse Oximetry 96 07/13/22 12:19 Oxygen Delivery Method 07/13/22 12:19 Course <Eugenio Earl PA-C - Last Filed: 07/13/22 14:57> Orders Ordered: ED Orders 07/13/22 12:31 Covid-19 + FLU A/B + RSV - PCR Stat 07/13/22 12:58 XR chest 2V Stat 07/13/22 14:04 CBC Auto Diff [Complete Blood Count AUTO DIFF] Stat CMP [Comprehensive Metabolic Panel] Stat 07/13/22 14:27 EKG-12 Lead Stat 07/13/22 14:35 Urine Microscopic Stat Vital Signs Vital signs: Vital Signs - 8 hr 07/13/22 12:19 07/13/22 14:15 07/13/22 14:16 Temperature 98.2 F Pulse Rate 82 75 Respiratory Rate 18 Blood Pressure 124/79 117/64 Pulse Oximetry 96 96 Oxygen Delivery Method Room Air 07/13/22 14:16 07/13/22 15:28 07/13/22 15:29 Temperature Pulse Rate 67 69 70 Respiratory Rate Blood Pressure Pulse Oximetry 97 97 96 Oxygen Delivery Method 07/13/22 15:29 07/13/22 15:30 Temperature Pulse Rate 69 Respiratory Rate Blood Pressure 113/55 L Pulse Oximetry 96 Oxygen Delivery Method <Lester Messina DO - Last Filed: 07/13/22 16:03> Orders Ordered: ED Orders 07/13/22 12:31 Covid-19 + FLU A/B + RSV - PCR Stat 07/13/22 12:58 XR chest 2V Stat 07/13/22 14:04 CBC Auto Diff [Complete Blood Count AUTO DIFF] Stat CMP [Comprehensive Metabolic Panel] Stat 07/13/22 14:27 EKG-12 Lead Stat 07/13/22 14:35 Urine Microscopic Stat Vital Signs Vital signs: Vital Signs - 8 hr 07/13/22 12:19 07/13/22 14:15 07/13/22 14:16 Temperature 98.2 F Pulse Rate 82 75 Respiratory Rate 18 Blood Pressure 124/79 117/64 Pulse Oximetry 96 96 Oxygen Delivery Method Room Air 07/13/22 14:16 07/13/22 15:28 07/13/22 15:29 Temperature Pulse Rate 67 69 70 Respiratory Rate Blood Pressure Pulse Oximetry 97 97 96 Oxygen Delivery Method 07/13/22 15:29 07/13/22 15:30 Temperature Pulse Rate 69 Respiratory Rate Blood Pressure 113/55 L Pulse Oximetry 96 Oxygen Delivery Method MDM - URI/Sore Throat <Eugenio Earl PA-C - Last Filed: 07/13/22 14:57> Lab Data Result diagrams: 07/13/22 14:04 07/13/22 14:04 Labs: Lab Results 07/13/22 07/13/22 07/13/22 Range/Units 12:31 14:04 14:04 WBC 10.4 (4.5-11.0) X10^3/uL RBC 4.94 (4.0-5.2) X10^6/uL Hgb 14.8 (12.0-16.0) g/dL Hct 43.0 (36-46) % MCV 87.1 (80-100) fL MCH 29.9 (26-34) PG MCHC 34.3 (30-36) % RDW 14.0 (11.6-14.8) % Plt Count 346 (150-400) X10^3/uL Neut % (Auto) 81.0 H (50-75) % Lymph % (Auto) 15.5 L (25-40) % Harney % (Auto) 3.1 (3-14) % Eos % (Auto) 0.1 L (2-4) % Baso % (Auto) 0.3 (0-2) % Neut # (Auto) 8400 H (2850-7114) /uL Lymph # (Auto) 1600 (3333-5139) /uL Harney # (Auto) 300 (0-900) /uL Eos # (Auto) 0 (0-450) /uL Baso # (Auto) 0 (0-100) /uL Sodium 139 (137-145) mmol/L Potassium 4.4 (3.4-5.1) mmol/L Chloride 106 (98-107) mmol/L Carbon Dioxide 21 L (22-32) mmol/L BUN 18 H (7-17) mg/dL Creatinine 0.64 (0.52-1.04) mg/dL Estimated GFR > 60 (>60) mL/min BUN/Creatinine Ratio 28.1 H (6-22) Glucose 107 H (70-100) mg/dL Calcium 9.4 (8.4-10.2) mg/dL Total Bilirubin 0.4 (0.2-1.3) mg/dL AST 31 (14-36) IU/L ALT 37 H (<35) IU/L Alkaline Phosphatase 66 (38-126) U/L Total Protein 8.8 H (6.3-8.2) g/dL Albumin 4.7 (3.5-5.0) g/dL Globulin 4.1 (1.7-4.1) g/dL Albumin/Globulin Ratio 1.1 (1.0-2.8) Urine RBC (0-5/HPF) Urine WBC (0-5/HPF) Ur Squamous Epith Cells (0-5/HPF) Urine Bacteria (None) Ur Culture Indicated? SARS-CoV-2 (PCR) Negative (Negative) Influenza A (RT-PCR) Flu a negative (NEGATIVE) Influenza B (RT-PCR) Flu b negative (NEGATIVE) RSV (PCR) Negative (Negative) 07/13/22 Range/Units 14:35 WBC (4.5-11.0) X10^3/uL RBC (4.0-5.2) X10^6/uL Hgb (12.0-16.0) g/dL Hct (36-46) % MCV (80-100) fL MCH (26-34) PG MCHC (30-36) % RDW (11.6-14.8) % Plt Count (150-400) X10^3/uL Neut % (Auto) (50-75) % Lymph % (Auto) (25-40) % Harney % (Auto) (3-14) % Eos % (Auto) (2-4) % Baso % (Auto) (0-2) % Neut # (Auto) (7220-7695) /uL Lymph # (Auto) (3286-1176) /uL Harney # (Auto) (0-900) /uL Eos # (Auto) (0-450) /uL Baso # (Auto) (0-100) /uL Sodium (137-145) mmol/L Potassium (3.4-5.1) mmol/L Chloride (98-107) mmol/L Carbon Dioxide (22-32) mmol/L BUN (7-17) mg/dL Creatinine (0.52-1.04) mg/dL Estimated GFR (>60) mL/min BUN/Creatinine Ratio (6-22) Glucose (70-100) mg/dL Calcium (8.4-10.2) mg/dL Total Bilirubin (0.2-1.3) mg/dL AST (14-36) IU/L ALT (<35) IU/L Alkaline Phosphatase (38-126) U/L Total Protein (6.3-8.2) g/dL Albumin (3.5-5.0) g/dL Globulin (1.7-4.1) g/dL Albumin/Globulin Ratio (1.0-2.8) Urine RBC None seen (0-5/HPF) Urine WBC None seen (0-5/HPF) Ur Squamous Epith Cells 0-1 /hpf (0-5/HPF) Urine Bacteria None seen (None) Ur Culture Indicated? Cult not indicated SARS-CoV-2 (PCR) (Negative) Influenza A (RT-PCR) (NEGATIVE) Influenza B (RT-PCR) (NEGATIVE) RSV (PCR) (Negative) Urine Dip Bedside Urine Glucose Negative Bedside Urine Bilirubin - Negative Bedside Urine Ketone - Negative Urine Specific Medon 1.015 Bedside Urine Occult Blood + Bedside Urine pH 6.5 Bedside Urine Protein - Negative Bedside Urine Urobilinogen - Negative Bedside Urine Nitrite - Negative Bedside Urine Leukocytes - Negative Esterase Imaging Data Chest x-ray: Radiologist's Impression: PROCEDURE:? XR CHEST 2V ? INDICATIONS:? cough ? TECHNIQUE:? 2 views of the chest were acquired.? ? COMPARISON:? [facility], CR, XR CHEST 2V, 06/23/2022, 5:14.? [facility], CR, XR CHEST 2V, 03/20/2022, 23:45. ? FINDINGS:? ? Surgical changes and devices:? None.? ? Lungs and pleura:? Lungs are clear except for a linear band of increased radiodensity within the right middle lobe, consistent with mild or early pneumonia in this clinical circumstance.? No pleural effusions or pneumothorax.? ? Mediastinum:? Mediastinal contours are normal.? Heart size is normal.? ? Bones and chest wall:? No suspicious bony abnormalities.? Soft tissues appear unremarkable.? ? IMPRESSION:? Mild or early pneumonia right middle lobe. ? ? Dictated by: Dante Shepherd M.D. on 07/13/2022 at 13:16 ? ? Approved by: Dante Shepherd M.D. on 07/13/2022 at 13:17 ? ECG Data Interpretation: EKG has normal sinus rhythm with sinus arrhythmia and no obvious left bundle-branch block ST segment elevation or Q-wave morphology. MDM Narrative Medical decision making narrative: Patient is a 36-year-old female with a history of asthma that presents to the emergency room with complaint of shortness of breath productive cough fatigue and sinus congestion for about a week. She recently had exacerbation of asthma Saturday of last week. Chest films today revealed right middle lobe pneumonia. Labs were done to rule out COVID and assess level of infectious etiology or blood. Urine was checked for UTI per patient's request. Plan is to prescribe antibiotics release the patient home unless labs and diagnostics reveal any urgent emergent concerns. Urine dip results had minimal blood urine sent to lab. Patient discharged and advised she will be contacted for urine labs were positive. <Lester Messina, DO - Last Filed: 07/13/22 16:03> Lab Data Labs: Lab Results 07/13/22 07/13/22 07/13/22 Range/Units 12:31 14:04 14:04 WBC 10.4 (4.5-11.0) X10^3/uL RBC 4.94 (4.0-5.2) X10^6/uL Hgb 14.8 (12.0-16.0) g/dL Hct 43.0 (36-46) % MCV 87.1 (80-100) fL MCH 29.9 (26-34) PG MCHC 34.3 (30-36) % RDW 14.0 (11.6-14.8) % Plt Count 346 (150-400) X10^3/uL Neut % (Auto) 81.0 H (50-75) % Lymph % (Auto) 15.5 L (25-40) % Harney % (Auto) 3.1 (3-14) % Eos % (Auto) 0.1 L (2-4) % Baso % (Auto) 0.3 (0-2) % Neut # (Auto) 8400 H (7666-0021) /uL Lymph # (Auto) 1600 (2908-3675) /uL Harney # (Auto) 300 (0-900) /uL Eos # (Auto) 0 (0-450) /uL Baso # (Auto) 0 (0-100) /uL Sodium 139 (137-145) mmol/L Potassium 4.4 (3.4-5.1) mmol/L Chloride 106 (98-107) mmol/L Carbon Dioxide 21 L (22-32) mmol/L BUN 18 H (7-17) mg/dL Creatinine 0.64 (0.52-1.04) mg/dL Estimated GFR > 60 (>60) mL/min BUN/Creatinine Ratio 28.1 H (6-22) Glucose 107 H (70-100) mg/dL Calcium 9.4 (8.4-10.2) mg/dL Total Bilirubin 0.4 (0.2-1.3) mg/dL AST 31 (14-36) IU/L ALT 37 H (<35) IU/L Alkaline Phosphatase 66 (38-126) U/L Total Protein 8.8 H (6.3-8.2) g/dL Albumin 4.7 (3.5-5.0) g/dL Globulin 4.1 (1.7-4.1) g/dL Albumin/Globulin Ratio 1.1 (1.0-2.8) Urine RBC (0-5/HPF) Urine WBC (0-5/HPF) Ur Squamous Epith Cells (0-5/HPF) Urine Bacteria (None) Ur Culture Indicated? SARS-CoV-2 (PCR) Negative (Negative) Influenza A (RT-PCR) Flu a negative (NEGATIVE) Influenza B (RT-PCR) Flu b negative (NEGATIVE) RSV (PCR) Negative (Negative) 07/13/22 Range/Units 14:35 WBC (4.5-11.0) X10^3/uL RBC (4.0-5.2) X10^6/uL Hgb (12.0-16.0) g/dL Hct (36-46) % MCV (80-100) fL MCH (26-34) PG MCHC (30-36) % RDW (11.6-14.8) % Plt Count (150-400) X10^3/uL Neut % (Auto) (50-75) % Lymph % (Auto) (25-40) % Harney % (Auto) (3-14) % Eos % (Auto) (2-4) % Baso % (Auto) (0-2) % Neut # (Auto) (6942-9329) /uL Lymph # (Auto) (0527-3909) /uL Harney # (Auto) (0-900) /uL Eos # (Auto) (0-450) /uL Baso # (Auto) (0-100) /uL Sodium (137-145) mmol/L Potassium (3.4-5.1) mmol/L Chloride (98-107) mmol/L Carbon Dioxide (22-32) mmol/L BUN (7-17) mg/dL Creatinine (0.52-1.04) mg/dL Estimated GFR (>60) mL/min BUN/Creatinine Ratio (6-22) Glucose (70-100) mg/dL Calcium (8.4-10.2) mg/dL Total Bilirubin (0.2-1.3) mg/dL AST (14-36) IU/L ALT (<35) IU/L Alkaline Phosphatase (38-126) U/L Total Protein (6.3-8.2) g/dL Albumin (3.5-5.0) g/dL Globulin (1.7-4.1) g/dL Albumin/Globulin Ratio (1.0-2.8) Urine RBC None seen (0-5/HPF) Urine WBC None seen (0-5/HPF) Ur Squamous Epith Cells 0-1 /hpf (0-5/HPF) Urine Bacteria None seen (None) Ur Culture Indicated? Cult not indicated SARS-CoV-2 (PCR) (Negative) Influenza A (RT-PCR) (NEGATIVE) Influenza B (RT-PCR) (NEGATIVE) RSV (PCR) (Negative) Urine Dip Bedside Urine Glucose Negative Bedside Urine Bilirubin - Negative Bedside Urine Ketone - Negative Urine Specific Medon 1.015 Bedside Urine Occult Blood + Bedside Urine pH 6.5 Bedside Urine Protein - Negative Bedside Urine Urobilinogen - Negative Bedside Urine Nitrite - Negative Bedside Urine Leukocytes - Negative Esterase Discharge Plan Departure Patient Disposition: Home Clinical Impression: Upper respiratory infection Instructions: DI for Pneumonia -- Adult, DI for Viral Upper Respiratory Infection -- Adult Activity Restrictions/Additional Instructions: *You have been diagnosed with pneumonia. I have ordered antibiotics to treat her pneumonia. I suggest you take the antibiotics as ordered. Also suggest to continue to mask he can try to avoid coughing or exchange of so she oral pulmonary secretions with others. I suggest she return to the emergency room if any emergent concerns arise point [ ] *What to do: *Please continue to take your regular medications as directed. [x] New medication prescriptions sent to your pharmacy: [ ] [ ] New medication written as a paper prescription [ ] No new medications given *Please follow up with your primary care provider in 2-3 days, call for an appointment. Let them know you were seen in the Emergency Department and that we ask that you be seen in follow up. We will electronically transmit a record of today's note if your PCP is in our system *If you do not have a primary care provider please contact the [facility] Resource line at [phone]. They will ask some questions about your medical history and help get you set up with a doctor in the community. *Return to Emergency Department if you should have any new, worsening or concerning symptoms, such as [fever greater than 101 F, shaking chills, worsening pain, persistent vomiting or other bothersome symptoms] Prescriptions: New doxycycline hyclate 100 mg tablet 100 mg PO BID Qty: 10 0RF No Action fluticasone propion-salmeterol [Advair Diskus] 100-50 mcg/dose blister with device 1 inh inhalation BID Qty: 60 3RF albuterol sulfate 90 mcg/actuation HFA aerosol inhaler 2 puff inhalation Q6H PRN (Reason: shortness of breath or wheezing) Qty: 8.5 3RF methylprednisolone [Medrol (Akash)] 4 mg tablets,dose pack 4 mg PO DAILY Qty: 21 0RF prednisone 20 mg tablet 40 mg PO DAILY Qty: 10 0RF albuterol sulfate 90 mcg/actuation HFA aerosol inhaler 2 puff INHALATION Q4-6H PRN (Reason: shortness of breath or wheezing) Qty: 8.5 0RF Advair HFA 230-21 mcg/actuation HFA aerosol inhaler 2 puff inhalation BID Qty: 12 0RF Referrals: Gogo Lopez PA-C [Primary Care Provider] - Visit Report Forms: Patient Portal/API <Lester Messina, - Last Filed: 07/13/22 16:03> Cosign ED Attending Cosignature Attestation: Dr Messina Co-Sign Statement: I was available for consultation during this patient's emergency department visit. This chart is signed by myself for administrative purposes only. I did not have direct contact with this patient during this visit. They were seen independently by the APC.
[2022-07-13 13:41] LABS: Influenza A - CEPHEID Flu A NEGATIVE (NEGATIVE); Influenza B - CEPHEID Flu B NEGATIVE (NEGATIVE); Respiratory Syncytial Virus Negative (Negative)
[2022-07-13 13:43] LABS: COVID-19 CEPHEID PCR (VTM/NP) Negative (Negative)
[2022-07-13 14:11] LABS: Add Manual Diff / Slide Review NO; Basophils Absolute Auto 0 /uL (0-100); Basophils Percent Auto 0.3 % (0-2); Eosinophils Absolute Auto 0 /uL (0-450); Eosinophils Percent Auto 0.1 % (2-4); Hemoglobin 14.8 g/dL (12.0-16.0); Lymphocytes Absolute Auto 1600 /uL (1100-4500); Lymphocytes Percent Auto 15.5 % (25-40); Mean Corpuscular HGB Conc 34.3 % (30-36); Mean Corpuscular Hemoglobin 29.9 PG (26-34); Mean Corpuscular Volume 87.1 fL (80-100); Monocytes Absolute Auto 300 /uL (0-900); Monocytes Percent Auto 3.1 % (3-14); Neutrophils Absolute Auto 8400 /uL (1500-7000); Platelet Count 346 X10^3/uL (150-400); Red Blood Cell Count 4.94 X10^6/uL (4.0-5.2); White Blood Cell Count 10.4 X10^3/uL (4.5-11.0)
[2022-07-13 14:15] VITALS: PULSE 75; O2SAT 96
[2022-07-13 14:16] VITALS: BP 117/64; PULSE 67; O2SAT 97
[2022-07-13 14:29] LABS: Alanine Aminotransferase 37 IU/L (<35); Albumin 4.7 g/dL (3.5-5.0); Albumin Globulin Ratio 1.1 (1.0-2.8); Alkaline Phosphatase 66 U/L (38-126); Aspartate Aminotransferase 31 IU/L (14-36); BUN Creatinine Ratio 28.1 (6-22); Bilirubin Total 0.4 mg/dL (0.2-1.3); Blood Urea Nitrogen 18 mg/dL (7-17); Calcium 9.4 mg/dL (8.4-10.2); Carbon Dioxide 21 mmol/L (22-32); Chloride 106 mmol/L (98-107); Estimated Glomerular Filt Rate > 60 mL/min (>60); Globulin 4.1 g/dL (1.7-4.1); Glucose 107 mg/dL (70-100); HEMOLYSIS 24 (0-50); Potassium 4.4 mmol/L (3.4-5.1); Sodium 139 mmol/L (137-145); Total Protein 8.8 g/dL (6.3-8.2)
[2022-07-13 15:07] LABS: Bacteria Urine None Seen; Culture Indicated Urine Cult Not Indicated; RBC Urine None Seen (0-5/HPF); Squamous Epithelial Cell Urine 0-1 /HPF (0-5/HPF); WBC Urine None Seen (0-5/HPF)
[2022-07-13 15:28] VITALS: PULSE 69; O2SAT 97
[2022-07-13 15:29] VITALS: BP 113/55; PULSE 70; O2SAT 96
[2022-07-13 15:30] VITALS: PULSE 69; O2SAT 96
== END 2022-07-13 15:42 | disposition home or self-care (01) ==
PROVIDERS: Emergency Medicine; Emergency Provider Physician Assistant; PCP Physician Assistant
DX: J06.9 Acute upper respiratory infection, unspecified (principal); R05.9 Cough, unspecified; Z20.822 Contact with and (suspected) exposure to COVID-19
CPT/HCPCS: 0241U; 71046; 80053; 81003; 81015; 85025; 93005; 99283; 99284

== ENCOUNTER 2022-08-20 19:41 | Emergency (ER) | payer OTHER, SELFPAY ==
[2022-08-20 19:44] VITALS: BP 123/82; PULSE 85; RESP 22; TEMP 36.7; O2SAT 96
[2022-08-20 19:58] VITALS: PULSE 86; RESP 20; O2SAT 96
[2022-08-20] MEDS: ALBUTEROL/IPRATROPIUM 3 ML AMPUL INH ×3 (19:58→21:49)
--- NOTE | 2022-08-20 20:00 | PC.NURSE ---
pt has been using her inhaler without relief and now is out of her inhaler
--- NOTE | 2022-08-20 20:18 | ED.GENADULT ---
HPI - General Adult General Chief complaint: Shortness of Breath/Dyspnea Stated complaint: Asthma Time Seen by Provider: 08/20/22 20:15 Source: patient Mode of arrival: Ambulatory History of Present Illness HPI narrative: 36-year-old female. History of asthma. Is here for evaluation of wheezing and cough. She is had it for the past couple days. She has been doing her albuterol inhaler at home however it has only been minimally an approved and she is now out of albuterol. She recently was treated with antibiotics for pneumonia. She is completed the course of this. No fevers. Related Data Previous Rx's Medication Instructions Recorded albuterol sulfate 90 mcg/actuation 2 puff inhalation Q6H PRN 06/23/22 aerosol inhaler shortness of breath or wheezing #8.5 grams fluticasone 100 mcg-salmeterol 50 1 inh inhalation BID #60 ea 06/23/22 mcg/dose blistr powdr for inhalation (Advair Diskus) methylprednisolone 4 mg tablets in 4 mg PO DAILY #21 ea 06/23/22 a dose pack (Medrol (Akash)) albuterol sulfate 90 mcg/actuation 2 puff inhalation Q4-6H PRN 07/11/22 aerosol inhaler shortness of breath or wheezing #8.5 grams fluticasone propionate 230 2 puff inhalation BID #12 grams 07/11/22 mcg-salmeterol 21 mcg/actuation HFA inhaler (Advair HFA) prednisone 20 mg tablet 40 mg PO DAILY #10 tabs 07/11/22 doxycycline hyclate 100 mg tablet 100 mg PO BID #10 tabs 07/13/22 albuterol sulfate 90 mcg/actuation 2 puff inhalation Q4-6H PRN 08/20/22 aerosol inhaler shortness of breath or wheezing #8.5 grams methylprednisolone 4 mg tablets in See Rx Instructions PO .COMPLEX 08/20/22 a dose pack (Medrol (Akash)) #21 ea Allergies Allergy/AdvReac Type Severity Reaction Status Date / Time No Known Drug Allergies Allergy Verified 07/11/22 21:31 Review of Systems Constitutional Constitutional: Reports system reviewed and no additional complaints, except as documented Cardiovascular Cardiovascular: Reports system reviewed and no additional complaints, except as documented Respiratory Respiratory: Reports system reviewed and no additional complaints, except as documented Integumentary/Breasts Skin/Breast: Reports system reviewed and no additional complaints, except as documented Patient History Medical History Asthma Social History Smoking Status: Never smoker Smoking Status: Never smoker alcohol intake frequency: 0-2 drinks per day Substance Use Type: does not use Exam Initial Vital Signs Initial Vital Signs: Vital Signs Temperature 98.1 F 08/20/22 19:44 Pulse Rate 85 08/20/22 19:44 Respiratory Rate 22 08/20/22 19:44 Blood Pressure 123/82 08/20/22 19:44 Pulse Oximetry 96 08/20/22 19:44 Oxygen Delivery Method 08/20/22 19:44 HENMT Head: normal to inspection and normocephalic Resp Effort & Inspection: normal respiratory effort and not tachypneic Auscultation: wheezes Cardio Rate: regular rate Skin General: no rashes or lesions noted Extrem General: normal to inspection and capillary refill normal Course Orders Ordered: ED Orders 08/20/22 19:48 Consult to Respiratory Therapy Evaluate & Treat Discontinued Medications Albuterol (Albuterol Hfa Prepack) 1 box MISC SEEINSTR ONE Stop: 08/20/22 22:29 Last Admin: 08/20/22 22:39 Dose: 1 box Documented By: ALVARADO Albuterol/Ipratropium (Albuterol/Ipratropium 3 Ml Ampul) 3 ml INH NOW ONE Stop: 08/20/22 19:56 Last Admin: 08/20/22 19:58 Dose: 3 ml Documented By: JERO Albuterol/Ipratropium (Albuterol/Ipratropium 3 Ml Ampul) 3 ml INH NOW ONE Stop: 08/20/22 20:19 Last Admin: 08/20/22 20:39 Dose: 3 ml Documented By: JERO Albuterol/Ipratropium (Albuterol/Ipratropium 3 Ml Ampul) 3 ml INH NOW ONE Stop: 08/20/22 21:30 Last Admin: 08/20/22 21:49 Dose: 3 ml Documented By: JERO Prednisone (Prednisone 20 Mg Tablet) 20 mg PO NOW ONE Stop: 08/20/22 20:19 Last Admin: 08/20/22 20:23 Dose: 20 mg Documented By: ALVARADO Vital Signs Vital signs: Vital Signs - 8 hr 08/20/22 19:58 08/20/22 20:39 08/20/22 21:49 Pulse Rate 86 86 86 Respiratory Rate 20 20 20 Blood Pressure Pulse Oximetry 96 96 96 Oxygen Delivery Method Room Air Room Air Room Air 08/20/22 22:46 Pulse Rate 95 H Respiratory Rate Blood Pressure 115/64 Pulse Oximetry 96 Oxygen Delivery Method Room Air Medical Decision Making MDM Narrative Medical decision making narrative: By the time I am a weighted the patient she had already received 1 DuoNeb. She was still wheezing on the right side which she states she felt much better than when she 1st arrived. She was given 2 more nebulizer treatments each time improving afterwards. After that she felt like she could be discharged home. She was given a prepack of an albuterol inhaler and a prescription was sent to the pharmacy of her choice. Will place her on steroids. No indication for antibiotics. No indication for radiologic studies. She was given return precautions and follow-up instructions. She expressed understanding and agreement. Discharge Plan Departure Patient Disposition: Home Clinical Impression: Asthma with exacerbation Instructions: DI for Asthma -- Adult Activity Restrictions/Additional Instructions: I recommend that you use the albuterol inhaler and also the steroids as directed. Contact your primary doctor for follow-up. Return to the emergency department for any new or worsening symptoms. Prescriptions: New albuterol sulfate 90 mcg/actuation HFA aerosol inhaler 2 puff inhalation Q4-6H PRN (Reason: shortness of breath or wheezing) Qty: 8.5 2RF methylprednisolone [Medrol (Akash)] 4 mg tablets,dose pack See Rx Instructions .ROUTE .COMPLEX Qty: 21 0RF Rx Instructions: orally per package directions No Action fluticasone propion-salmeterol [Advair Diskus] 100-50 mcg/dose blister with device 1 inh inhalation BID Qty: 60 3RF albuterol sulfate 90 mcg/actuation HFA aerosol inhaler 2 puff inhalation Q6H PRN (Reason: shortness of breath or wheezing) Qty: 8.5 3RF methylprednisolone [Medrol (Akash)] 4 mg tablets,dose pack 4 mg PO DAILY Qty: 21 0RF prednisone 20 mg tablet 40 mg PO DAILY Qty: 10 0RF albuterol sulfate 90 mcg/actuation HFA aerosol inhaler 2 puff INHALATION Q4-6H PRN (Reason: shortness of breath or wheezing) Qty: 8.5 0RF Advair HFA 230-21 mcg/actuation HFA aerosol inhaler 2 puff inhalation BID Qty: 12 0RF doxycycline hyclate 100 mg tablet 100 mg PO BID Qty: 10 0RF Referrals: Gogo Lopez PA-C [Primary Care Provider] - Visit Report Forms: Patient Portal/API
[2022-08-20] MEDS: predniSONE 20 MG TABLET PO (20:23)
[2022-08-20 20:39] VITALS: PULSE 86; RESP 20; O2SAT 96
[2022-08-20 21:49] VITALS: PULSE 86; RESP 20; O2SAT 96
[2022-08-20] MEDS: ALBUTEROL HFA PREPACK 1 BOX MISC (22:39)
[2022-08-20 22:46] VITALS: BP 115/64; PULSE 95; O2SAT 96
== END 2022-08-20 22:48 | disposition home or self-care (01) ==
PROVIDERS: Emergency Provider Emergency Medicine; PCP Physician Assistant
DX: J45.901 Unspecified asthma with (acute) exacerbation (principal)
CPT/HCPCS: 94640; 99283

== ENCOUNTER → 2022-10-03 09:14 | Outpatient (CLI) | payer OTHER, MEDICAID, SELFPAY ==
[2022-10-03 10:00] LABS: Hemoglobin A1C% w Est Avg Glu 5.5 % (4.0-6.0)
[2022-10-03 10:15] LABS: Cholesterol 194 mg/dL (140-199); HDL Cholesterol 32 mg/dL (40-60); LDL Cholesterol Calculated 98 mg/dL (<100); Triglycerides 322 mg/dL (35-150)
[2022-10-03 11:11] LABS: TSH w/ Reflex to FT4 1.82 uIU/mL (0.47-4.68)
== END ==
PROVIDERS: PCP Family Medicine; Referring Provider Family Medicine; Visit Provider Family Medicine
DX: E28.2 Polycystic ovarian syndrome (principal); R73.9 Hyperglycemia, unspecified
CPT/HCPCS: 36415; 80061; 83036; 84443

== ENCOUNTER → 2022-10-26 17:04 | Outpatient (CLI) | payer OTHER, MEDICAID, SELFPAY | PROVIDERS: PCP Family Medicine; Visit Provider Student in an Organized Health Care Education/Training Program | DX: N39.0 Urinary tract infection, site not specified (principal) | CPT/HCPCS: 87077; 87086; 87147; 87186 ==

== ENCOUNTER → 2022-11-08 12:02 | Outpatient (CLI) | payer OTHER, MEDICAID, SELFPAY ==
[2022-11-08 13:47] LABS: Influenza A - CEPHEID Flu A NEGATIVE (NEGATIVE); Influenza B - CEPHEID Flu B NEGATIVE (NEGATIVE); Respiratory Syncytial Virus Negative (Negative)
[2022-11-08 13:48] LABS: COVID-19 CEPHEID 4-PLEX PCR Negative (Negative)
== END ==
PROVIDERS: PCP Family Medicine; Visit Provider Registered Nurse
DX: R05.1 Acute cough (principal)
CPT/HCPCS: 0241U

== ENCOUNTER 2022-11-10 23:25 | Emergency (ER) | payer OTHER, MEDICAID, SELFPAY ==
[2022-11-10 23:36] VITALS: BP 122/77; PULSE 95; RESP 18; TEMP 37.3; O2SAT 96; BMI 43.0
--- NOTE | 2022-11-10 23:51 | ED_ITS ---
HPI - General Adult General Chief complaint: Shortness of Breath/Dyspnea Stated complaint: POSSIBLE PNEMONIA Time Seen by Provider: 11/10/22 23:41 Source: patient Mode of arrival: Ambulatory History of Present Illness HPI narrative: 37-year-old woman with a history of asthma presents with cough that has been present for at least 5 or 6 days. She has family member at home was recently diagnosed with COVID. She was seen at urgent care 2 days ago COVID swab was negative she was placed on 50 mg of oral prednisone for 5 days and instructed to continue to use her albuterol and fluticasone inhalers. She complains that ?this time it does not work at all?. She believes it is the prednisone rather than the Medrol Dosepak that she typically receives for her asthma. She notes that she has been using multiple puffs of her albuterol today and finds that it is of very little benefit and she is continuing to cough. She is no longer havi ng fevers, she does not describe chest pain or palpitations, no abdominal pain or vomiting. She is significantly sleep deprived with a baby who is also been sick and the cough that is keeping her awake. She is not having abdominal pain or lower extremity edema. Related Data Previous Rx's Medication Instructions Recorded albuterol sulfate 90 mcg/actuation 2 puff inhalation Q4-6H PRN 09/28/22 aerosol inhaler shortness of breath or wheezing #8.5 grams cetirizine 10 mg tablet (Zyrtec) 10 mg PO DAILY PRN allergy 09/28/22 symptoms #90 tabs fluticasone propionate 230 1 - 2 puff inhalation BID #12 grams 09/28/22 mcg-salmeterol 21 mcg/actuation HFA inhaler (Advair HFA) hydroxyzine HCl 25 mg tablet 25 mg PO TID PRN anxiety #30 tabs 09/28/22 dextroamphetamine-amphetamine ER 15 mg PO DAILY #30 caps 10/03/22 15 mg 24hr capsule,extend release (Adderall XR) dextroamphetamine-amphetamine ER 15 mg PO DAILY #30 caps 10/03/22 15 mg 24hr capsule,extend release (Adderall XR) semaglutide 1 mg/dose (2 mg/1.5 1 mg (0.75 mL) SUBCUT QWEEK #9 mL 11/02/22 mL) subcutaneous pen injector ipratropium bromide 42 mcg (0.06 2 spray intranasal TID #15 mL 11/08/22 %) nasal spray prednisone 50 mg tablet 50 mg PO DAILY 5 days #5 tabs 11/08/22 albuterol sulfate 90 mcg/actuation 2 puff inhalation Q4-6H PRN 11/11/22 aerosol inhaler shortness of breath or wheezing #8.5 grams fluticasone propionate 230 2 puff inhalation BID #12 grams 11/11/22 mcg-salmeterol 21 mcg/actuation HFA inhaler methylprednisolone 4 mg tablets in 4 mg PO DAILY #21 ea 11/11/22 a dose pack (Medrol (Akash)) Allergies Allergy/AdvReac Type Severity Reaction Status Date / Time No Known Drug Allergies Allergy Verified 11/08/22 12:06 Review of Systems Review of Systems Narrative: Remainder of complete review of systems is otherwise unremarkable except for that included in the HPI. Patient History Medical History ADHD Allergic rhinitis Anxiety Hyperlipidemia Moderate persistent asthma Morbid obesity PCOS (polycystic ovarian syndrome) Social History Smoking Status: Never smoker Smoking Status: Never smoker alcohol intake frequency: 0-2 drinks per day Substance Use Type: does not use Exam Initial Vital Signs Initial Vital Signs: Vital Signs Temperature 99.1 F 11/10/22 23:36 Pulse Rate 95 H 11/10/22 23:36 Respiratory Rate 18 11/10/22 23:36 Blood Pressure 122/77 11/10/22 23:36 Pulse Oximetry 96 11/10/22 23:36 Oxygen Delivery Method 11/10/22 23:36 General: Healthy appearing, in no acute distress. Appears fatigued but able to speak in complete sentences HEENT: Moist mucous membranes, normal sclera with reactive pupils, Respiratory: Lungs are clear to auscultation, minimal end expiratory wheeze with cough but certainly no retractions or accessory muscle use Cardiac: Mild tachycardia without murmurs Abdomen: Soft, nontender, good bowel tones, no flank pain Skin: Warm and dry, no rashes Neurologic: Grossly neurologically intact with no obvious asymmetries or abnormalities Extremities: No trauma, well perfused, no lower extremity edema Psych: Cooperative, appropriate insight and affect Course Orders Ordered: ED Orders 11/11/22 00:01 XR chest 1V Stat EKG-12 Lead Stat 11/11/22 00:06 Respiratory Panel (Film Array) Stat 11/11/22 00:12 Complete Blood Count AUTO DIFF Stat Comprehensive Metabolic Panel Stat D Dimer Stat NT-proBNP (BNP-Adult 18+) Stat Procalcitonin Stat Troponin I Stat Discontinued Medications Albuterol/Ipratropium (Albuterol/Ipratropium 3 Ml Ampul) 3 ml INH NOW ONE Stop: 11/11/22 00:10 Last Admin: 11/11/22 00:12 Dose: 3 ml Documented By: BONIFACIO Albuterol/Ipratropium (Albuterol/Ipratropium 3 Ml Ampul) 3 ml INH NOW ONE Stop: 11/11/22 00:21 Last Admin: 11/11/22 00:23 Dose: 3 ml Documented By: BONIFACIO Sodium Chloride (Normal Saline 0.9%) 1,000 mls @ 1,000 mls/hr IV BOLUS ONE Stop: 11/11/22 00:58 Last Admin: 11/11/22 00:31 Dose: 1,000 mls/hr Documented By: YONAS Magnesium Sulfate (Magnesium Sulfate) 2 gm in 50 mls @ 150 mls/hr IV NOW ONE Stop: 11/11/22 00:18 Last Infusion: 11/11/22 00:50 Dose: 0 mls/hr Documented By: TARAS Co-signed By: SWAPNIL Admin: 11/11/22 00:28 Dose: 150 mls/hr Documented By: YONAS Co-signed By: SWAPNIL Methylprednisolone (Methylprednisolone 125 Mg/2 Ml Vial) 125 mg IV NOW ONE Stop: 11/11/22 00:00 Last Admin: 11/11/22 00:30 Dose: 125 mg Documented By: YONAS Vital Signs Vital signs: Vital Signs - 8 hr 11/10/22 23:36 Temperature 99.1 F Pulse Rate 95 H Respiratory Rate 18 Blood Pressure 122/77 Pulse Oximetry 96 Oxygen Delivery Method Room Air Medical Decision Making Lab Data 11/11/22 00:12 11/11/22 00:12 Labs: Lab Results 11/10/22 11/11/22 11/11/22 Range/Units 23:34 00:12 00:12 WBC 9.8 (4.5-11.0) X10^3/uL RBC 4.67 (4.0-5.2) X10^6/uL Hgb 13.8 (12.0-16.0) g/dL Hct 40.2 (36-46) % MCV 86.0 (80-100) fL MCH 29.6 (26-34) PG MCHC 34.3 (30-36) % RDW 13.6 (11.6-14.8) % Plt Count 317 (150-400) X10^3/uL Neut % (Auto) 58.0 (50-75) % Lymph % (Auto) 30.5 (25-40) % [place] % (Auto) 10.5 (3-14) % Eos % (Auto) 0.4 L (2-4) % Baso % (Auto) 0.6 (0-2) % Neut # (Auto) 5700 (9754-1639) /uL Lymph # (Auto) 3000 (4302-7323) /uL [place] # (Auto) 1000 H (0-900) /uL Eos # (Auto) 0 (0-450) /uL Baso # (Auto) 100 (0-100) /uL D-Dimer 294 (<500) ng/ml Sodium (137-145) mmol/L Potassium (3.4-5.1) mmol/L Chloride (98-107) mmol/L Carbon Dioxide (22-32) mmol/L BUN (7-17) mg/dL Creatinine (0.52-1.04) mg/dL Estimated GFR (>60) mL/min BUN/Creatinine Ratio (6-22) Glucose (70-100) mg/dL Calcium (8.4-10.2) mg/dL Total Bilirubin (0.2-1.3) mg/dL AST (14-36) IU/L ALT (<35) IU/L Alkaline Phosphatase (38-126) U/L Troponin I (0.01-0.034) ng/mL NT-Pro-B Natriuret Pep (<125) pg/mL Total Protein (6.3-8.2) g/dL Albumin (3.5-5.0) g/dL Globulin (1.7-4.1) g/dL Albumin/Globulin Ratio (1.0-2.8) Procalcitonin (<0.5) ng/mL Chlamy pneumoniae PCR Not detected (Not Detect) Adenovirus (PCR) Not detected (Not Detect) B. pertussis DNA (PCR) Not detected (Not Detecte) B.parapertussis DNA PCR Not detected (Not Detecte) Coronavirus OC43 (PCR) Not detected (Not Detect) Coronavirus HKU1 (PCR) Not detected (Not Detect) Coronavirus 229E (PCR) Not detected (Not Detect) SARS-CoV-2 (PCR) Not detected (Not Detecte) Coronavirus NL63 (PCR) Not detected (Not Detect) Human Metapneumovir PCR Not detected (Not Detect) Influenza Type A (PCR) Not detected (Not Detect) Influenza Type B (PCR) Not detected (Not Detect) M. pneumoniae (PCR) Not detected (Not Detect) Parainfluenza 1 (PCR) Not detected (Not Detect) Parainfluenza 2 (PCR) Not detected (Not Detect) Parainfluenza 3 (PCR) Not detected (Not Detect) Parainfluenza 4 (PCR) Not detected (Not Detect) RSV (PCR) Not detected (Not Detect) Entero/Rhino (PCR) Not detected (Not Detect) 11/11/22 11/11/22 Range/Units 00:12 00:12 WBC (4.5-11.0) X10^3/uL RBC (4.0-5.2) X10^6/uL Hgb (12.0-16.0) g/dL Hct (36-46) % MCV (80-100) fL MCH (26-34) PG MCHC (30-36) % RDW (11.6-14.8) % Plt Count (150-400) X10^3/uL Neut % (Auto) (50-75) % Lymph % (Auto) (25-40) % [place] % (Auto) (3-14) % Eos % (Auto) (2-4) % Baso % (Auto) (0-2) % Neut # (Auto) (3192-3687) /uL Lymph # (Auto) (6831-7382) /uL [place] # (Auto) (0-900) /uL Eos # (Auto) (0-450) /uL Baso # (Auto) (0-100) /uL D-Dimer (<500) ng/ml Sodium 140 (137-145) mmol/L Potassium 3.6 (3.4-5.1) mmol/L Chloride 99 (98-107) mmol/L Carbon Dioxide 28 (22-32) mmol/L BUN 17 (7-17) mg/dL Creatinine 0.70 (0.52-1.04) mg/dL Estimated GFR > 60 (>60) mL/min BUN/Creatinine Ratio 24.3 H (6-22) Glucose 99 (70-100) mg/dL Calcium 8.7 (8.4-10.2) mg/dL Total Bilirubin 0.3 (0.2-1.3) mg/dL AST 24 (14-36) IU/L ALT 37 H (<35) IU/L Alkaline Phosphatase 64 (38-126) U/L Troponin I < 0.012 (0.01-0.034) ng/mL NT-Pro-B Natriuret Pep 35 (<125) pg/mL Total Protein 7.5 (6.3-8.2) g/dL Albumin 4.2 (3.5-5.0) g/dL Globulin 3.3 (1.7-4.1) g/dL Albumin/Globulin Ratio 1.3 (1.0-2.8) Procalcitonin 0.05 (<0.5) ng/mL Chlamy pneumoniae PCR (Not Detect) Adenovirus (PCR) (Not Detect) B. pertussis DNA (PCR) (Not Detecte) B.parapertussis DNA PCR (Not Detecte) Coronavirus OC43 (PCR) (Not Detect) Coronavirus HKU1 (PCR) (Not Detect) Coronavirus 229E (PCR) (Not Detect) SARS-CoV-2 (PCR) (Not Detecte) Coronavirus NL63 (PCR) (Not Detect) Human Metapneumovir PCR (Not Detect) Influenza Type A (PCR) (Not Detect) Influenza Type B (PCR) (Not Detect) M. pneumoniae (PCR) (Not Detect) Parainfluenza 1 (PCR) (Not Detect) Parainfluenza 2 (PCR) (Not Detect) Parainfluenza 3 (PCR) (Not Detect) Parainfluenza 4 (PCR) (Not Detect) RSV (PCR) (Not Detect) Entero/Rhino (PCR) (Not Detect) MDM Narrative Medical decision making narrative: CC: Persistent cough despite prednisone and albuterol use. This is a worsening exacerbation uncertain diagnosis Complicating co-morbidities: Asthma Corroborating data: Data collected from: patient, Medical records reviewed: Walk-in clinic notes as well as prior ER notes are reviewed Differential considered: Given the fact that she is not improving at all with appropriate asthma treatment possibility of a non asthma presentation is certainly there. Certainly cough variant asthma continues to be in the differential as does congestive heart failure, pneumonia, viral syndrome, pneumothorax, pulmonary embolism Exam documented above, pertinent findings include: Minimal wheezing and no retractions Lab Test results independently reviewed as above. Pertinent findings: CBC is unremarkable suggesting absence of significant bacterial infection Chemistries are reassuring Troponin is negative Procalcitonin is negative Full respiratory panel shows no virus identified Independently reviewed EKG: Sinus rhythm at a rate of 87. Normal intervals, normal axis. No acute ischemic changes Imaging studies independently reviewed: Chest x-ray shows clear lungs no effusion or pneumothorax, no cardiomyopathy and no explanation for her cough Consultations: Treatments: She is treated for asthma including DuoNeb, IV magnesium, IV Solu- Medrol and a L of saline. Re-evaluations: 1:15 am patient is feeling significantly better after treatments as listed above. She still is having mild end expiratory wheeze but nothing beyond that. Reviewed all findings including no evidence for bacterial superinfection, no need for antibiotics, no cardiac abnormalities and the negative respiratory panel. She feels that she responds much better to Solu-Medrol so will prescribe her a Medrol Dosepak and refill both her albuterol at her fluticasone inhalers. She does have a spacer and does use it regularly. At this point she is safe for discharge home Disposition: see below, along with detailed discharge instructions that have been reviewed with patient as well as indications for ED re-evaluation and additional outpatient follow up Discharge Plan Departure Patient Disposition: Home Clinical Impression: Sleep deprivation Asthma with exacerbation Qualifiers: Asthma severity: mild Asthma persistence: intermittent Qualified Code(s): J45.21 - Mild intermittent asthma with (acute) exacerbation Cough Qualifiers: Cough type: acute Qualified Code(s): R05.1 - Acute cough Instructions: DI for Asthma -- Adult Activity Restrictions/Additional Instructions: Thank you for coming in today Your workup today does not show any signs of pleural pneumonia. We did look for 20 different viruses on a viral panel and all were negative. The remainder of your blood work was quite reassuring. Your clinical exam shows mild and expiratory wheezing in the dry cough but no evidence of significant respiratory distress. In the emergency department your given fluids, IV steroids, IV magnesium and a breathing treatment. I am glad that you are feeling a bit better after the treatment. I am going to send you home with a Medrol Dosepak to start tomorrow. You do not need to complete the prednisone if there are any left. Please continue to use the Advair 2 puffs in the morning 2 puffs at night with a spacer. With the albuterol you can use 2 puffs with a spacer every 4 hours as needed for wheezing and cough. All prescriptions have been electronically transmitted to [facility] for you I do think that getting a couple of good night sleep in a row will likely do even more for you than any other medications. If you find that you are getting worse or develop any new symptoms, please feel free to return to the emergency department for further evaluation. Prescriptions: New methylprednisolone [Medrol (Akash)] 4 mg tablets,dose pack 4 mg PO DAILY Qty: 21 0RF albuterol sulfate 90 mcg/actuation HFA aerosol inhaler 2 puff inhalation Q4-6H PRN (Reason: shortness of breath or wheezing) Qty: 8.5 1RF fluticasone propion-salmeterol 230-21 mcg/actuation HFA aerosol inhaler 2 puff inhalation BID Qty: 12 2RF No Action ipratropium bromide 42 mcg (0.06 %) spray,non-aerosol 2 spray intranasal TID Qty: 15 0RF Rx Instructions: administer into each nostril for 4 days only. prednisone 50 mg tablet 50 mg PO DAILY 5 Days Qty: 5 0RF semaglutide 1 mg/dose (2 mg/1.5 mL) pen injector 1 mg SUBCUT QWEEK Qty: 9 5RF Advair HFA 230-21 mcg/actuation HFA aerosol inhaler 1 - 2 puff inhalation BID Qty: 12 11RF albuterol sulfate 90 mcg/actuation HFA aerosol inhaler 2 puff inhalation Q4-6H PRN (Reason: shortness of breath or wheezing) Qty: 8.5 11RF cetirizine [Zyrtec] 10 mg tablet 10 mg PO DAILY PRN (Reason: allergy symptoms) Qty: 90 3RF hydroxyzine HCl 25 mg tablet 25 mg PO TID PRN (Reason: anxiety) Qty: 30 11RF dextroamphetamine-amphetamine [Adderall XR] 15 mg capsule,extended release 24hr 15 mg PO DAILY Qty: 30 0RF dextroamphetamine-amphetamine [Adderall XR] 15 mg capsule,extended release 24hr 15 mg PO DAILY Qty: 30 0RF Referrals: Maurice Sofia DO [Primary Care Provider] - Stand Alone Forms: Patient Portal/API
--- NOTE | 2022-11-11 00:01 | DI.RAD.S_ITS ---
PROCEDURE: XR CHEST 1V INDICATIONS: cough TECHNIQUE: One view of the chest was acquired. COMPARISON: [facility], CR, XR CHEST 2V, 07/13/2022, 13:00. [facility], CR, XR CHEST 2V, 06/23/2022, 5:14. FINDINGS: Surgical changes and devices: None. Lungs and pleura: Lungs are clear. No pleural effusions or pneumothorax. Mediastinum: Mediastinal contours appear normal. Heart size is normal. Bones and chest wall: No suspicious bony lesions. Overlying soft tissues appear unremarkable. IMPRESSION: Normal for age, source of current cough symptoms is not seen. Dictated by: Dante Shepherd M.D. on 11/11/2022 at 0:23 Approved by: Dante Shepherd M.D. on 11/11/2022 at 0:23
[2022-11-11] MEDS: ALBUTEROL/IPRATROPIUM 3 ML AMPUL INH ×2 (00:12→00:23)
[2022-11-11 00:25] LABS: Add Manual Diff / Slide Review NO; Basophils Absolute Auto 100 /uL (0-100); Basophils Percent Auto 0.6 % (0-2); Eosinophils Absolute Auto 0 /uL (0-450); Eosinophils Percent Auto 0.4 % (2-4); Hematocrit 40.2 % (36-46); Hemoglobin 13.8 g/dL (12.0-16.0); Lymphocytes Absolute Auto 3000 /uL (1100-4500); Lymphocytes Percent Auto 30.5 % (25-40); Mean Corpuscular HGB Conc 34.3 % (30-36); Mean Corpuscular Hemoglobin 29.6 PG (26-34); Monocytes Absolute Auto 1000 /uL (0-900); Monocytes Percent Auto 10.5 % (3-14); Neutrophils Absolute Auto 5700 /uL (1500-7000); Platelet Count 317 X10^3/uL (150-400); Red Blood Cell Count 4.67 X10^6/uL (4.0-5.2); Red Cell Distribution Width 13.6 % (11.6-14.8); White Blood Cell Count 9.8 X10^3/uL (4.5-11.0)
[2022-11-11] MEDS: MAGNESIUM SULFATE 2 GM/50 ML PIGGYBACK IV (00:28)
[2022-11-11] MEDS: methylPREDNISolone 125 MG/2 ML VIAL IV (00:30)
[2022-11-11] MEDS: SODIUM CHLORIDE 0.9% 1,000 ML 1000 ML IV (00:31)
[2022-11-11 00:35] LABS: D Dimer 294 ng/ml (<500)
[2022-11-11 00:39] LABS: Alanine Aminotransferase 37 IU/L (<35); Albumin 4.2 g/dL (3.5-5.0); Albumin Globulin Ratio 1.3 (1.0-2.8); Alkaline Phosphatase 64 U/L (38-126); Aspartate Aminotransferase 24 IU/L (14-36); BUN Creatinine Ratio 24.3 (6-22); Bilirubin Total 0.3 mg/dL (0.2-1.3); Blood Urea Nitrogen 17 mg/dL (7-17); Calcium 8.7 mg/dL (8.4-10.2); Carbon Dioxide 28 mmol/L (22-32); Chloride 99 mmol/L (98-107); Estimated Glomerular Filt Rate > 60 mL/min (>60); Globulin 3.3 g/dL (1.7-4.1); Glucose 99 mg/dL (70-100); HEMOLYSIS 29 (0-50); Potassium 3.6 mmol/L (3.4-5.1); Sodium 140 mmol/L (137-145); Total Protein 7.5 g/dL (6.3-8.2)
[2022-11-11 00:49] LABS: NT-proBNP (BNP-Adult 18+) 35 pg/mL (<125)
[2022-11-11 00:51] LABS: Troponin I < 0.012 ng/mL (0.01-0.034)
[2022-11-11 00:56] LABS: Procalcitonin 0.05 ng/mL (<0.5)
[2022-11-11 01:00] LABS: Adenovirus Not Detected (Not Detect); Coronavirus 229E Not Detected (Not Detect); Coronavirus HKU1 Not Detected (Not Detect); SARS- CoV-2 Not Detected (Not Detecte)
[2022-11-11 01:01] LABS: B. parapertussis Not Detected (Not Detecte); Bordetella pertussis Not Detected (Not Detecte); Chlamydophila pneumoniae Not Detected (Not Detect); Coronavirus NL 63 Not Detected (Not Detect); Coronavirus OC43 Not Detected (Not Detect); Human Metapneumovirus Not Detected (Not Detect); Human Rhinovirus/Enterovirus Not Detected (Not Detect); Influenza A Not Detected (Not Detect); Influenza B Not Detected (Not Detect); Mycoplasma pneumoniae Not Detected (Not Detect); Parainfluenza Virus 1 Not Detected (Not Detect); Parainfluenza Virus 2 Not Detected (Not Detect); Parainfluenza Virus 3 Not Detected (Not Detect); Parainfluenza Virus 4 Not Detected (Not Detect); Respiratory Syncytial Virus Not Detected (Not Detect)
[2022-11-11 01:45] VITALS: BP 112/70; PULSE 92; RESP 16; TEMP 37; O2SAT 95
== END 2022-11-11 01:48 | disposition home or self-care (01) ==
PROVIDERS: Emergency Provider Emergency Medicine; PCP Family Medicine
DX: J45.21 Mild intermittent asthma with (acute) exacerbation (principal); R05.1 Acute cough; Z72.820 Sleep deprivation; Z79.899 Other long term (current) drug therapy
CPT/HCPCS: 36415; 71045; 80053; 81025; 83880; 84145; 84484; 85025; 85379; 87633; 93005; 93010; 94640; 96361; 96374; 99284; J2930; J3475

== ENCOUNTER 2022-11-20 12:35 | Emergency (ER) | payer OTHER, MEDICAID, SELFPAY ==
[2022-11-20 12:41] VITALS: BP 122/73; PULSE 86; RESP 16; TEMP 36.6; O2SAT 96; BMI 43.0
--- NOTE | 2022-11-20 12:48 | DI.RAD.S_ITS ---
PROCEDURE: XR CHEST 2V INDICATIONS: cough, congestion x 28 days TECHNIQUE: 2 views of the chest were acquired. COMPARISON: [facility], CR, XR CHEST 1V, 11/10/2022, 23:59. FINDINGS: Surgical changes and devices: None. Lungs and pleura: Lungs are clear. No pleural effusions or pneumothorax. Mediastinum: Mediastinal contours are normal. Heart size is normal. Bones and chest wall: No suspicious bony abnormalities. Soft tissues appear unremarkable. IMPRESSION: No acute pulmonary process. Dictated by: Liss Luevano M.D. on 11/20/2022 at 13:31 Approved by: Liss Luevano M.D. on 11/20/2022 at 13:32
[2022-11-20 13:30] LABS: COVID19 -Nasal RAPID POSITIVE (Negative)
--- NOTE | 2022-11-20 15:19 | ED.URI ---
HPI - URI/Sore Throat <Sophia Bran PA-C - Last Filed: 11/20/22 15:25> General Chief Complaint: Upper Respiratory Symptoms Stated Complaint: Cough, Pain in Lung Time Seen by Provider: 11/20/22 13:12 Source: patient Mode of arrival: Ambulatory History of Present Illness HPI Narrative: 37-year-old female presents to the ED with 4 weeks of URI symptoms including a dry cough, sinus congestion, chills, fever. Patient denies chest pain, shortness of breath, nausea, vomiting, diarrhea. Patient states that her was diagnosed with COVID-19 last week. Patient is 1-year-old daughter has been sick as well. Patient has a history of asthma, says she is had to use her inhaler a couple of times. Patient also uses Singulair. Related Data Previous Rx's Medication Instructions Recorded albuterol sulfate 90 mcg/actuation 2 puff inhalation Q4-6H PRN 09/28/22 aerosol inhaler shortness of breath or wheezing #8.5 grams cetirizine 10 mg tablet (Zyrtec) 10 mg PO DAILY PRN allergy 09/28/22 symptoms #90 tabs fluticasone propionate 230 1 - 2 puff inhalation BID #12 grams 09/28/22 mcg-salmeterol 21 mcg/actuation HFA inhaler (Advair HFA) hydroxyzine HCl 25 mg tablet 25 mg PO TID PRN anxiety #30 tabs 09/28/22 dextroamphetamine-amphetamine ER 15 mg PO DAILY #30 caps 10/03/22 15 mg 24hr capsule,extend release (Adderall XR) dextroamphetamine-amphetamine ER 15 mg PO DAILY #30 caps 10/03/22 15 mg 24hr capsule,extend release (Adderall XR) semaglutide 1 mg/dose (2 mg/1.5 1 mg (0.75 mL) SUBCUT QWEEK #9 mL 11/02/22 mL) subcutaneous pen injector ipratropium bromide 42 mcg (0.06 2 spray intranasal TID #15 mL 11/08/22 %) nasal spray albuterol sulfate 90 mcg/actuation 2 puff inhalation Q4-6H PRN 11/11/22 aerosol inhaler shortness of breath or wheezing #8.5 grams fluticasone propionate 230 2 puff inhalation BID #12 grams 11/11/22 mcg-salmeterol 21 mcg/actuation HFA inhaler methylprednisolone 4 mg tablets in 4 mg PO DAILY #21 ea 11/11/22 a dose pack (Medrol (Akash)) montelukast 10 mg tablet 10 mg PO DAILY #30 tabs 11/16/22 benzonatate 200 mg capsule 200 mg PO TID PRN cough #30 caps 11/20/22 Allergies Allergy/AdvReac Type Severity Reaction Status Date / Time Penicillins Allergy Verified 11/20/22 12:41 Review of Systems <Sophia Bran PA-C - Last Filed: 11/20/22 15:25> Review of Systems ROS Unobtainable: All systems reviewed & are unremarkable except as noted in HPI and below Constitutional Constitutional: Reports chills, Denies fatigue, Reports fever(s), Denies frequent falls, Denies lethargy and Denies weakness Eyes Eyes: Denies change in vision, Denies eye discharge, Denies irritation and Denies loss of vision ENT Ears, Nose, Mouth, and Throat: Denies change in voice, Denies dizziness, Denies neck pain, Denies sore throat and Denies throat swelling Cardiovascular Cardiovascular: Denies chest pain, Denies irregular heart rhythm, Denies lightheadedness, Denies palpitations, Denies dyspnea, Denies dyspnea on exertion and Denies orthopnea Respiratory Respiratory: Reports cough, Denies dyspnea, Denies dyspnea on exertion and Denies wheezing Gastrointestinal Gastrointestinal: Denies abdominal pain, Denies change in bowel habits, Denies diarrhea, Denies nausea and Denies vomiting Genitourinary Genitourinary: Denies hematuria, Denies flank pain, Denies urinary incontinence and Denies urinary urgency Musculoskeletal Musculoskeletal: Denies back pain, Denies muscle weakness, Denies neck pain, Denies numbness and Denies tingling Integumentary/Breasts Skin/Breast: Denies pruritus, Denies erythema, Denies rash and Denies wounds Neurologic Neurologic: Denies behavioral changes, Denies confusion, Denies dizziness, Denies frequent falls, Denies loss of vision, Denies numbness, Denies tingling and Denies weakness Psychiatric Psychiatric: Denies anxiety, Denies behavioral changes, Denies confusion, Denies depression, Denies homicidal ideation and Denies suicidal ideation Endocrine Endocrine: Denies fatigue, Denies flushing and Denies palpitations Hematologic/Lymphatic Hematologic/Lymphatic: Denies easy bruising Allergic/Immunologic Allergic/Immunologic: Denies urticaria, Denies throat swelling and Denies wheezing Patient History <Sophia Bran PA-C - Last Filed: 11/20/22 15:25> Medical History ADHD Allergic rhinitis Anxiety Hyperlipidemia Moderate persistent asthma Morbid obesity PCOS (polycystic ovarian syndrome) Social History Smoking Status: Never smoker Smoking Status: Never smoker alcohol intake frequency: 0-2 drinks per day Substance Use Type: does not use Exam <Sophia Bran PA-C - Last Filed: 11/20/22 15:25> Narrative Exam Narrative: Const General:?cooperative, healthy appearing and comfortable HENMT Head:?normal to inspection Ears:?hearing grossly normal bilaterally Nose:?external nose normal Face and sinus:?normal facial exam and sinuses nontender Mouth:?oral mucosae normal Throat:?posterior oropharynx normal Eyes General:?appearance normal, both eyes and all related structures Neck Neck:?normal visual inspection and no lymphadenopathy noted Resp Effort & Inspection:?normal respiratory effort Auscultation:?clear to auscultation bilaterally Cardio Rate:?regular rate Rhythm:?regular rhythm Neuro General:?patient alert, patient awake and patient oriented x3 Initial Vital Signs Initial Vital Signs: Vital Signs Temperature 97.8 F 11/20/22 12:41 Pulse Rate 86 11/20/22 12:41 Respiratory Rate 16 11/20/22 12:41 Blood Pressure 122/73 11/20/22 12:41 Pulse Oximetry 96 11/20/22 12:41 Oxygen Delivery Method 11/20/22 12:41 <Alf Delgado DO - Last Filed: 11/20/22 17:54> Initial Vital Signs Initial Vital Signs: Vital Signs Temperature 97.8 F 11/20/22 12:41 Pulse Rate 86 11/20/22 12:41 Respiratory Rate 16 11/20/22 12:41 Blood Pressure 122/73 11/20/22 12:41 Pulse Oximetry 96 11/20/22 12:41 Oxygen Delivery Method 11/20/22 12:41 Course <Sophia Bran PA-C - Last Filed: 11/20/22 15:25> Orders Ordered: ED Orders 11/20/22 12:48 XR chest 2V Stat 11/20/22 13:10 COVID19 -Nasal RAPID/Pre-Proc Stat Vital Signs Vital signs: Vital Signs - 8 hr 11/20/22 12:41 Temperature 97.8 F Pulse Rate 86 Respiratory Rate 16 Blood Pressure 122/73 Pulse Oximetry 96 Oxygen Delivery Method Room Air <DO Bianca No Last Filed: 11/20/22 17:54> Orders Ordered: ED Orders 11/20/22 12:48 XR chest 2V Stat 11/20/22 13:10 COVID19 -Nasal RAPID/Pre-Proc Stat Vital Signs Vital signs: Vital Signs - 8 hr 11/20/22 12:41 Temperature 97.8 F Pulse Rate 86 Respiratory Rate 16 Blood Pressure 122/73 Pulse Oximetry 96 Oxygen Delivery Method Room Air MDM - URI/Sore Throat <Sophia Bran PA-C - Last Filed: 11/20/22 15:25> Lab Data Labs: Lab Results 11/20/22 Range/Units 13:10 SARS-CoV-2 (PCR) Positive H (Negative) MDM Narrative Medical decision making narrative: 37-year-old female presents to the ED with 4 weeks of URI symptoms including a dry cough, sinus congestion, chills, fever. Concern for COVID-19 infection versus other viral syndrome versus asthma exacerbation versus bronchitis versus other. Patient is positive for COVID-19. Lungs are bilaterally clear to auscultation, normal effort of respiration. Patient's symptoms most likely due to COVID-19 infection/bronchitis. Recommend albuterol as needed for wheezing, continue Singulair. Prescribed Tessalon Perles for cough. Recommend supportive care with Tylenol/ibuprofen. Recommend good hydration. ED return precautions were discussed with patient. Patient verbalized understanding. Medical records reviewed: Yes <Alf Delgado DO - Last Filed: 11/20/22 17:54> Lab Data Labs: Lab Results 11/20/22 Range/Units 13:10 SARS-CoV-2 (PCR) Positive H (Negative) Discharge Plan Departure Patient Disposition: Home Clinical Impression: COVID-19 Instructions: COVID-19 Activity Restrictions/Additional Instructions: You were evaluated in the ED for a fever and cough. You tested positive for COVID-19. You have been prescribed Tessalon Perles for cough. You may take any other [id number] medicines for symptom relief. Please continue to stay well hydrated. Return to the ED if you experience any chest pain, shortness of breath. Prescriptions: New benzonatate 200 mg capsule 200 mg PO TID PRN (Reason: cough) Qty: 30 0RF No Action ipratropium bromide 42 mcg (0.06 %) spray,non-aerosol 2 spray intranasal TID Qty: 15 0RF Rx Instructions: administer into each nostril for 4 days only. semaglutide 1 mg/dose (2 mg/1.5 mL) pen injector 1 mg SUBCUT QWEEK Qty: 9 5RF montelukast 10 mg tablet 10 mg PO DAILY Qty: 30 0RF Advair HFA 230-21 mcg/actuation HFA aerosol inhaler 1 - 2 puff inhalation BID Qty: 12 11RF albuterol sulfate 90 mcg/actuation HFA aerosol inhaler 2 puff inhalation Q4-6H PRN (Reason: shortness of breath or wheezing) Qty: 8.5 11RF cetirizine [Zyrtec] 10 mg tablet 10 mg PO DAILY PRN (Reason: allergy symptoms) Qty: 90 3RF hydroxyzine HCl 25 mg tablet 25 mg PO TID PRN (Reason: anxiety) Qty: 30 11RF dextroamphetamine-amphetamine [Adderall XR] 15 mg capsule,extended release 24hr 15 mg PO DAILY Qty: 30 0RF dextroamphetamine-amphetamine [Adderall XR] 15 mg capsule,extended release 24hr 15 mg PO DAILY Qty: 30 0RF methylprednisolone [Medrol (Akash)] 4 mg tablets,dose pack 4 mg PO DAILY Qty: 21 0RF albuterol sulfate 90 mcg/actuation HFA aerosol inhaler 2 puff inhalation Q4-6H PRN (Reason: shortness of breath or wheezing) Qty: 8.5 1RF fluticasone propion-salmeterol 230-21 mcg/actuation HFA aerosol inhaler 2 puff inhalation BID Qty: 12 2RF Referrals: Maurice Sofia DO [Primary Care Provider] - Stand Alone Forms: Patient Portal/API, Work Release Note <Alf Delgado DO - Last Filed: 11/20/22 17:54> Cosign ED Attending Cosignature Attestation: I was immediately available in the department for consultation. This documentation has been reviewed and I agree with assessment and plan. Supervised by Alf Delgado DO
== END 2022-11-20 13:58 | disposition home or self-care (01) ==
PROVIDERS: Emergency Medicine; Emergency Provider Student in an Organized Health Care Education/Training Program; PCP Family Medicine
DX: U07.1 COVID-19 (principal)
CPT/HCPCS: 71046; 87635; 99283; C9803

== ENCOUNTER 2022-11-28 21:17 | Emergency (ER) | payer OTHER, MEDICAID, SELFPAY ==
[2022-11-28 21:22] VITALS: BP 123/66; PULSE 84; RESP 16; TEMP 36.7; O2SAT 98; BMI 43.0
[2022-11-28 22:09] LABS: Add Manual Diff / Slide Review NO; Basophils Absolute Auto 0 /uL (0-100); Basophils Percent Auto 0.4 % (0-2); Eosinophils Absolute Auto 0 /uL (0-450); Eosinophils Percent Auto 0.3 % (2-4); Hematocrit 41.6 % (36-46); Hemoglobin 13.9 g/dL (12.0-16.0); Lymphocytes Absolute Auto 2600 /uL (1100-4500); Lymphocytes Percent Auto 21.7 % (25-40); Mean Corpuscular HGB Conc 33.5 % (30-36); Mean Corpuscular Hemoglobin 29.1 PG (26-34); Mean Corpuscular Volume 86.9 fL (80-100); Monocytes Absolute Auto 1100 /uL (0-900); Monocytes Percent Auto 9.4 % (3-14); Neutrophils Absolute Auto 8100 /uL (1500-7000); Neutrophils Percent Auto 68.2 % (50-75); Platelet Count 431 X10^3/uL (150-400); Red Blood Cell Count 4.78 X10^6/uL (4.0-5.2); Red Cell Distribution Width 13.6 % (11.6-14.8); White Blood Cell Count 11.9 X10^3/uL (4.5-11.0)
[2022-11-28 22:19] LABS: Alanine Aminotransferase 35 IU/L (<35); Albumin Globulin Ratio 1.1 (1.0-2.8); Alkaline Phosphatase 74 U/L (38-126); Aspartate Aminotransferase 24 IU/L (14-36); BUN Creatinine Ratio 21.3 (6-22); Bilirubin Total 0.2 mg/dL (0.2-1.3); Blood Urea Nitrogen 17 mg/dL (7-17); Calcium 8.8 mg/dL (8.4-10.2); Carbon Dioxide 31 mmol/L (22-32); Chloride 96 mmol/L (98-107); Estimated Glomerular Filt Rate > 60 mL/min (>60); Globulin 3.6 g/dL (1.7-4.1); Glucose 89 mg/dL (70-100); HEMOLYSIS < 15 (0-50); Lipase 126 U/L (23-300); Potassium 3.9 mmol/L (3.4-5.1); Sodium 137 mmol/L (137-145); Total Protein 7.6 g/dL (6.3-8.2)
--- NOTE | 2022-11-28 22:27 | ED.GENADULT ---
HPI - General Adult General Chief complaint: Abdominal Pain Stated complaint: stomach spasms, sent by MD Time Seen by Provider: 11/28/22 21:46 Source: patient Mode of arrival: Ambulatory Limitations: no limitations History of Present Illness HPI narrative: 37-year-old female who was sent to the emergency department by her primary doctor for evaluation of episodes she is been having for the past 5 days where she states she feels like her abdomen is bloated and that she is getting cramping in her upper abdomen that is radiating around her back. It is not associated with eating. No changes in bowel movements no urinary symptoms. No nausea vomiting. No fevers. Has had several C-sections in the past but no other abdominal surgeries. Related Data Previous Rx's Medication Instructions Recorded albuterol sulfate 90 mcg/actuation 2 puff inhalation Q4-6H PRN 09/28/22 aerosol inhaler shortness of breath or wheezing #8.5 grams cetirizine 10 mg tablet (Zyrtec) 10 mg PO DAILY PRN allergy 09/28/22 symptoms #90 tabs fluticasone propionate 230 1 - 2 puff inhalation BID #12 grams 09/28/22 mcg-salmeterol 21 mcg/actuation HFA inhaler (Advair HFA) hydroxyzine HCl 25 mg tablet 25 mg PO TID PRN anxiety #30 tabs 09/28/22 dextroamphetamine-amphetamine ER 15 mg PO DAILY #30 caps 10/03/22 15 mg 24hr capsule,extend release (Adderall XR) dextroamphetamine-amphetamine ER 15 mg PO DAILY #30 caps 10/03/22 15 mg 24hr capsule,extend release (Adderall XR) ipratropium bromide 42 mcg (0.06 2 spray intranasal TID #15 mL 11/08/22 %) nasal spray albuterol sulfate 90 mcg/actuation 2 puff inhalation Q4-6H PRN 11/11/22 aerosol inhaler shortness of breath or wheezing #8.5 grams fluticasone propionate 230 2 puff inhalation BID #12 grams 11/11/22 mcg-salmeterol 21 mcg/actuation HFA inhaler montelukast 10 mg tablet 10 mg PO DAILY #30 tabs 11/16/22 benzonatate 200 mg capsule 200 mg PO TID PRN cough #30 caps 11/20/22 methylprednisolone 4 mg tablets in 4 mg PO DAILY #21 ea 11/23/22 a dose pack (Medrol (Akash)) semaglutide 0.25 mg or 0.5 mg (2 0.25 mg (0.4 mL) SUBCUT QWEEK #9 mL 11/27/22 mg/3 mL) subcutaneous pen injector (Ozempic) Allergies Allergy/AdvReac Type Severity Reaction Status Date / Time Penicillins Allergy Verified 11/20/22 12:41 Review of Systems Constitutional Constitutional: Reports system reviewed and no additional complaints, except as documented Gastrointestinal Gastrointestinal: Reports system reviewed and no additional complaints, except as documented Genitourinary Genitourinary: Reports system reviewed and no additional complaints, except as documented Integumentary/Breasts Skin/Breast: Reports system reviewed and no additional complaints, except as documented Neurologic Neurologic: Reports system reviewed and no additional complaints, except as documented Hematologic/Lymphatic On Anticoagulants: No Patient History Medical History ADHD Allergic rhinitis Anxiety Hyperlipidemia Moderate persistent asthma Morbid obesity PCOS (polycystic ovarian syndrome) Social History Smoking Status: Never smoker Smoking Status: Never smoker alcohol intake frequency: 0-2 drinks per day Substance Use Type: does not use Exam Initial Vital Signs Initial Vital Signs: Vital Signs Temperature 98.1 F 11/28/22 21:22 Pulse Rate 84 11/28/22 21:22 Respiratory Rate 16 11/28/22 21:22 Blood Pressure 123/66 11/28/22 21:22 Pulse Oximetry 98 11/28/22 21:22 Oxygen Delivery Method 11/28/22 21:22 Resp Effort & Inspection: normal respiratory effort Auscultation: clear to auscultation bilaterally Cardio Rate: regular rate Rhythm: regular rhythm GI Inspection: normal to inspection Palpation: soft and No tender Back/Spine/Pelvis Thoracic/Lumbar Spine: No paraspinal tenderness, No thoracic spinal tenderness and No lumbar spinal tenderness Skin General: no rashes or lesions noted Neuro General: patient alert and patient awake Extrem General: normal to inspection and capillary refill normal Course Orders Ordered: ED Orders 11/28/22 21:30 Urine Microscopic Stat 11/28/22 21:55 Complete Blood Count AUTO DIFF Stat Comprehensive Metabolic Panel Stat Lipase Stat 11/28/22 22:28 CT abdomen pelvis w con Stat Discontinued Medications Cyclobenzaprine HCl (Cyclobenzaprine 10 Mg Prepack) 1 bottle MISC SEEINSTR ONE Stop: 11/28/22 23:50 Last Admin: 11/29/22 00:00 Dose: 1 bottle Documented By: JAYLYN Ondansetron HCl (Ondansetron 4 Mg Odt) 4 mg PO NOW PRN PRN Reason: Nausea And Vomiting Ondansetron HCl (Ondansetron 4 Mg/2 Ml Inj) 4 mg IV NOW PRN PRN Reason: Nausea And Vomiting Vital Signs Vital signs: Vital Signs - 8 hr 11/28/22 21:22 Temperature 98.1 F Pulse Rate 84 Respiratory Rate 16 Blood Pressure 123/66 Pulse Oximetry 98 Oxygen Delivery Method Room Air Medical Decision Making Lab Data Lab results reviewed: Yes I reviewed the patient's lab results. 11/28/22 21:55 11/28/22 21:55 Labs: Lab Results 11/28/22 11/28/22 11/28/22 Range/Units 21:30 21:55 21:55 WBC 11.9 H (4.5-11.0) X10^3/uL RBC 4.78 (4.0-5.2) X10^6/uL Hgb 13.9 (12.0-16.0) g/dL Hct 41.6 (36-46) % MCV 86.9 (80-100) fL MCH 29.1 (26-34) PG MCHC 33.5 (30-36) % RDW 13.6 (11.6-14.8) % Plt Count 431 H (150-400) X10^3/uL Neut % (Auto) 68.2 (50-75) % Lymph % (Auto) 21.7 L (25-40) % [place] % (Auto) 9.4 (3-14) % Eos % (Auto) 0.3 L (2-4) % Baso % (Auto) 0.4 (0-2) % Neut # (Auto) 8100 H (9998-4637) /uL Lymph # (Auto) 2600 (1670-7957) /uL [place] # (Auto) 1100 H (0-900) /uL Eos # (Auto) 0 (0-450) /uL Baso # (Auto) 0 (0-100) /uL Sodium 137 (137-145) mmol/L Potassium 3.9 (3.4-5.1) mmol/L Chloride 96 L (98-107) mmol/L Carbon Dioxide 31 (22-32) mmol/L BUN 17 (7-17) mg/dL Creatinine 0.80 (0.52-1.04) mg/dL Estimated GFR > 60 (>60) mL/min BUN/Creatinine Ratio 21.3 (6-22) Glucose 89 (70-100) mg/dL Calcium 8.8 (8.4-10.2) mg/dL Total Bilirubin 0.2 (0.2-1.3) mg/dL AST 24 (14-36) IU/L ALT 35 H (<35) IU/L Alkaline Phosphatase 74 (38-126) U/L Total Protein 7.6 (6.3-8.2) g/dL Albumin 4.0 (3.5-5.0) g/dL Globulin 3.6 (1.7-4.1) g/dL Albumin/Globulin Ratio 1.1 (1.0-2.8) Lipase 126 (23-300) U/L Urine RBC 1-5/hpf (0-5/HPF) Urine WBC None seen (0-5/HPF) Ur Squamous Epith Cells 1-5 /hpf (0-5/HPF) Urine Bacteria Moderate (10-30) H (None) Ur Culture Indicated? Cult not indicated Point of Care Testing Test Results Negative Urine Dip Bedside Urine Glucose Negative Bedside Urine Bilirubin - Negative Bedside Urine Ketone - Negative Urine Specific [place] 1.010 Bedside Urine Occult Blood +/- Bedside Urine pH 6 Bedside Urine Protein - Negative Bedside Urine Urobilinogen - Negative Bedside Urine Nitrite - Negative Bedside Urine Leukocytes - Negative Esterase Point of care testing: Point of Care Testing Test Results Negative Urine Dip Bedside Urine Glucose Negative Bedside Urine Bilirubin - Negative Bedside Urine Ketone - Negative Urine Specific [place] 1.010 Bedside Urine Occult Blood +/- Bedside Urine pH 6 Bedside Urine Protein - Negative Bedside Urine Urobilinogen - Negative Bedside Urine Nitrite - Negative Bedside Urine Leukocytes - Negative Esterase Imaging Data CT scan - abdomen/pelvis: Radiologist's Impression: ? IMPRESSION:? ? 1. Mild bladder wall thickening with mild associated fat stranding may reflect a cystitis.? Recommend correlation clinically. ? 2. Nonspecific left ovarian cyst measuring up to 4.2 cm. ? 3. No evidence of appendicitis. ? 4. Hepatic steatosis.? MDM Narrative Medical decision making narrative: Patient's workup here in the emergency department is unremarkable. Labs unremarkable. CT scan does not show any signs of infection or obstruction. Unsure the exact etiology of the patient's symptoms but there is no indication for antibiotics, admission to the hospital or surgical consultation. Will try muscle relaxers she feels like it is muscle spasms. Will discharge patient home with return precautions. She expressed understanding and agreement. Discharge Plan Departure Patient Disposition: Home Clinical Impression: Abdominal pain, Back spasm Instructions: DI for Abdominal Pain-Adult Activity Restrictions/Additional Instructions: Your workup here in the emergency department is very reassuring and there does not appear to be any signs of infection or surgical issues. Recommend that use the muscle relaxer as needed. Contact your primary doctor for a follow-up. Prescriptions: No Action ipratropium bromide 42 mcg (0.06 %) spray,non-aerosol 2 spray intranasal TID Qty: 15 0RF Rx Instructions: administer into each nostril for 4 days only. montelukast 10 mg tablet 10 mg PO DAILY Qty: 30 0RF methylprednisolone [Medrol (Akash)] 4 mg tablets,dose pack 4 mg PO DAILY Qty: 21 0RF Advair HFA 230-21 mcg/actuation HFA aerosol inhaler 1 - 2 puff inhalation BID Qty: 12 11RF albuterol sulfate 90 mcg/actuation HFA aerosol inhaler 2 puff inhalation Q4-6H PRN (Reason: shortness of breath or wheezing) Qty: 8.5 11RF cetirizine [Zyrtec] 10 mg tablet 10 mg PO DAILY PRN (Reason: allergy symptoms) Qty: 90 3RF hydroxyzine HCl 25 mg tablet 25 mg PO TID PRN (Reason: anxiety) Qty: 30 11RF dextroamphetamine-amphetamine [Adderall XR] 15 mg capsule,extended release 24hr 15 mg PO DAILY Qty: 30 0RF dextroamphetamine-amphetamine [Adderall XR] 15 mg capsule,extended release 24hr 15 mg PO DAILY Qty: 30 0RF Ozempic 0.25 mg or 0.5 mg (2 mg/3 mL) pen injector 0.25 mg SUBCUT QWEEK Qty: 9 4RF Rx Instructions: for 4 wks, then increase to 0.50 mg ( 0.8 mL) subQ weekly. albuterol sulfate 90 mcg/actuation HFA aerosol inhaler 2 puff inhalation Q4-6H PRN (Reason: shortness of breath or wheezing) Qty: 8.5 1RF fluticasone propion-salmeterol 230-21 mcg/actuation HFA aerosol inhaler 2 puff inhalation BID Qty: 12 2RF benzonatate 200 mg capsule 200 mg PO TID PRN (Reason: cough) Qty: 30 0RF Referrals: Maurice Sofia DO [Primary Care Provider] - Stand Alone Forms: Patient Portal/API
--- NOTE | 2022-11-28 22:28 | DI.CT.S_ITS ---
PROCEDURE: CT ABDOMEN PELVIS W CON INDICATIONS: Generalized abdominal tenderness TECHNIQUE: After the administration of IV contrast, axial sections were acquired from the lung bases to the pubic symphysis. Coronal and sagittal reformats were performed. For radiation dose reduction, the following was used: automated exposure control, adjustment of mA and/or kV according to patient size. COMPARISON: None. FINDINGS: Image quality: Excellent. WallLung bases: Unremarkable. Heart: Heart is normal in size. ABDOMEN: Liver: There is hypoattenuation of the liver consistent with fatty infiltration. Gallbladder: Within normal limits without calcified gallstones. Biliary ducts: No biliary ductal dilatation. Pancreas: Unremarkable. Spleen: Normal in size. Adrenal Glands: No adrenal nodules. Kidneys and Ureters: No hydronephrosis. Stomach and Bowel: Stomach, small bowel loops, and colon are normal in caliber and wall thickness. The appendix is normal in appearance. Peritoneum: No abnormal intraperitoneal fluid. No free air. Ventral Wall: No hernia. Abdominal Nodes: No retroperitoneal or mesenteric adenopathy by size criteria. Vessels: Aorta and inferior vena cava are normal in size. PELVIS: Pelvic Organs: There is a left ovarian cyst measuring up to 4.2 cm. Bladder: There is mild bladder wall thickening with associated mild perivesicular fat stranding. Pelvic Nodes: No enlarged lymph nodes. Miscellaneous: No inguinal hernias are seen. Bones: Visualized osseous structures demonstrate no suspicious focal lesions. IMPRESSION: 1. Mild bladder wall thickening with mild associated fat stranding may reflect a cystitis. Recommend correlation clinically. 2. Nonspecific left ovarian cyst measuring up to 4.2 cm. 3. No evidence of appendicitis. 4. Hepatic steatosis. Dictated by: Dionicio Saucedo M.D. on 11/28/2022 at 23:33 Approved by: Dionicio Saucedo M.D. on 11/28/2022 at 23:36
[2022-11-28 22:51] LABS: Bacteria Urine Moderate (10-30); RBC Urine 1-5/HPF (0-5/HPF); Squamous Epithelial Cell Urine 1-5 /HPF (0-5/HPF); WBC Urine None Seen (0-5/HPF)
[2022-11-28 22:52] LABS: Culture Indicated Urine Cult Not Indicated
[2022-11-29] MEDS: CYCLOBENZAPRINE 10 MG PREPACK 1 BOTTLE MISC
== END 2022-11-29 00:05 | disposition home or self-care (01) ==
PROVIDERS: Emergency Provider Emergency Medicine; PCP Family Medicine; Referring Provider Family Medicine
DX: R10.10 Upper abdominal pain, unspecified (principal); M62.830 Muscle spasm of back
CPT/HCPCS: 36415; 74177; 80053; 81003; 81015; 81025; 83690; 85025; 99283; 99284; Q9967

== ENCOUNTER 2023-07-07 10:33 | Emergency (ER) | payer OTHER, MEDICAID, SELFPAY ==
[2023-07-07 10:36] VITALS: BP 131/78; PULSE 88; RESP 20; TEMP 36.8; O2SAT 99; BMI 41.0
[2023-07-07 10:44] VITALS: PULSE 87; RESP 18; O2SAT 99
--- NOTE | 2023-07-07 10:49 | DI.RAD.S_ITS ---
PROCEDURE: XR CHEST 1V INDICATIONS: boo/cough TECHNIQUE: One view of the chest was acquired. COMPARISON: [facility], CR, XR CHEST 2V, 11/20/2022, 12:52. [facility], CR, XR CHEST 1V, 11/10/2022, 23:59. FINDINGS: Surgical changes and devices: None. Lungs and pleura: Lungs are clear. No pleural effusions or pneumothorax. Mediastinum: Mediastinal contours appear normal. Heart size is normal. Bones and chest wall: No suspicious bony lesions. Overlying soft tissues appear unremarkable. IMPRESSION: No acute cardiopulmonary process. Dictated by: Paddy Fernández M.D. on 07/07/2023 at 11:20 Approved by: Paddy Fernández M.D. on 07/07/2023 at 11:20
--- NOTE | 2023-07-07 10:49 | ED.ASTHMA ---
HPI - Asthma General Chief Complaint: Asthma Stated Complaint: asthma Time Seen by Provider: 07/07/23 10:43 Source: patient Mode of arrival: Ambulatory History of Present Illness HPI Narrative: 37-YEAR-OLD FEMALE WITH HISTORY OF ASTHMA PRESENTS FOR ASTHMA EXACERBATION. 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 REPORTS ASSOCIATED NONPRODUCTIVE COUGH. Related Data Previous Rx's Medication Instructions Recorded cetirizine 10 mg tablet (Zyrtec) 10 mg PO DAILY PRN allergy 09/28/22 symptoms #90 tabs hydroxyzine HCl 25 mg tablet 25 mg PO TID PRN anxiety #30 tabs 09/28/22 albuterol sulfate 90 mcg/actuation 2 puff inhalation Q4-6H PRN 11/11/22 aerosol inhaler shortness of breath or wheezing #8.5 grams montelukast 10 mg tablet 10 mg PO DAILY #90 tabs 12/18/22 buspirone 5 mg tablet 7.5 mg PO BID #75 tabs 03/19/23 metformin 500 mg tablet,extended 500 mg PO TIDWMEAL pcos #90 tabs 04/01/23 release 24hr semaglutide (weight loss) 0.25 0.25 mg (0.5 mL) SUBCUT QWEEK #2 mL 05/02/23 mg/0.5 mL subcutaneous pen injector (Wegovy) semaglutide (weight loss) 0.5 0.5 mg (0.5 mL) SUBCUT QWEEK #2 mL 05/02/23 mg/0.5 mL subcutaneous pen injector (Wegovy) semaglutide (weight loss) 1 mg/0.5 1 mg (0.5 mL) SUBCUT QWEEK #2 mL 05/02/23 mL subcutaneous pen injector (Wegovy) semaglutide (weight loss) 1.7 1.7 mg (0.75 mL) SUBCUT QWEEK #3 mL 05/02/23 mg/0.75 mL subcutaneous pen injector (Wegovy) semaglutide (weight loss) 2.4 2.4 mg (0.75 mL) SUBCUT QWEEK #3 mL 05/02/23 mg/0.75 mL subcutaneous pen injector (Wegovy) dextroamphetamine-amphetamine ER 20 mg PO BID 30 days #60 caps 06/24/23 20 mg 24hr capsule,extend release (Adderall XR) prednisone 20 mg tablet 40 mg PO DAILY 5 days #10 tabs 07/07/23 Allergies Allergy/AdvReac Type Severity Reaction Status Date / Time Penicillins Allergy Verified 06/13/23 15:50 Review of Systems Review of Systems Narrative: CONSTITUTIONAL- Denies: fever, chills, fatigue HEENT- Denies: sore throat, nosebleed, vision changes RESPIRATORY-reports: Shortness of breath, cough, wheezing CARDIAC- Denies: chest pain, edema, orthopnea GI- Denies: abdominal pain, nausea, vomiting, constipation, diarrhea - Denies: frequency, dysuria, hematuria, flank pain MSK- Denies: extremity pain, extremity swelling, joint pain, joint swelling SKIN- Denies: rash, itching, burn, swelling NEUROLOGICAL- Denies: headache, numbness, weakness, dizziness PSYCHIATRIC- Denies: anxiety, depression, suicidal ideation, homicidal ideation Patient History Medical History (Updated 07/07/23 @ 11:39 by Margaux Sousa MD) Abnormal Pap smear of cervix (~2012) ADHD Anxiety (~2009) Autism Chicken pox (~1989) Fibroids (~2004) Fibromyalgia (~2015) Human papilloma virus (~2012) Hyperlipidemia Infertility (~2007) Irregular menstrual cycle (~2007) Moderate persistent asthma Morbid obesity Ovarian cyst (~2007) PCOS (polycystic ovarian syndrome) PTSD (post-traumatic stress disorder) (~2009) Surgical History (Updated 12/23/22 @ 19:09 by Robyn Santoyo) Anesthesia History of abdominoplasty (~07/2019) History of section History of cosmetic surgery (~07/2019) Status post bilateral breast reduction (~07/2019) Family History (Updated 12/23/22 @ 19:11 by Robyn Santoyo) Brother Testicular cancer PTSD (post-traumatic stress disorder) ADHD Grandfather Cancer Diabetes mellitus Hypertension Grandmother Diabetes mellitus History of heart disease Hyperlipidemia Hypertension Stroke Family/Other ADHD Autism Social History Smoking Status: Never smoker Smoking Status: Never smoker alcohol intake frequency: 0-2 drinks per day Substance Use Type: does not use Exam Initial Vital Signs Initial Vital Signs: Vital Signs Temperature 98.3 F 07/07/23 10:36 Pulse Rate 88 07/07/23 10:36 Respiratory Rate 20 07/07/23 10:36 Blood Pressure 131/78 07/07/23 10:36 Pulse Oximetry 99 07/07/23 10:36 Oxygen Delivery Method Room Air 07/07/23 10:36 Const: Awake, alert, no acute distress, nontoxic appearing Eyes: PERRL, EOMI, conjunctiva normal ENT: Atraumatic, dentition normal, mucous membranes moist Cardiac: regular rate, regular rhythm RESP: unlabored, clear bilaterally, no wheezing GI: Atraumatic, soft, nontender, nondistended, no rebound, no guarding MSK: Atraumatic, full range of motion, pulses equal Skin: Warm, Dry, intact, no rashes Neuro: AO x3, CN II-XII grossly intact, moves all extremities Psych: affect normal, mood normal, not suicidal, not homicidal Course Course Course Narrative: Nontoxic-appearing female presenting for shortness of breath and cough consistent with previous asthma exacerbations. Despite patient's complaint of asthma her lungs are clear to auscultation bilaterally, peak flows are 300. We will give steroids and DuoNebs. Orders Ordered: ED Orders 07/07/23 10:49 Chest [XR chest 1V] Stat Discontinued Medications Albuterol (Albuterol 2.5 Mg/3 Ml Neb (Adult)) 2.5 mg INH [id number] PRN PRN Reason: Shortness Of Breath Albuterol/Ipratropium (Albuterol/Ipratropium 3 Ml Ampul) 9 ml INH NOW ONE Stop: 07/07/23 10:49 Last Admin: 07/07/23 10:55 Dose: 9 ml Documented By: JEREMIAH Dexamethasone (Dexamethasone 10 Mg/Ml Vial) 10 mg PO NOW ONE Stop: 07/07/23 10:49 Last Admin: 07/07/23 11:00 Dose: 10 mg Documented By: LILO Reevaluation(s) Reevaluation #1: Chest x-ray is clear, patient has received nebulizers and steroids. Repeat lung exam continues to demonstrate clear lungs with good air flow. Patient counseled about all results. She asked what she could do for the mucus she feels it is stuck in her chest. I advised that patient can take [id number] Mucinex. Discharged on steroids. ED return precautions discussed at bedside. Patient expressed understanding of the plan and is in agreement at this time. All questions answered at the time of discharge. Vital Signs Vital signs: Vital Signs - 8 hr 07/07/23 10:36 07/07/23 10:44 07/07/23 11:01 Temperature 98.3 F Pulse Rate 88 87 73 Respiratory Rate 20 18 18 Blood Pressure 131/78 Pulse Oximetry 99 99 100 Oxygen Delivery Method Room Air Room Air Room Air 07/07/23 11:10 07/07/23 11:54 Temperature Pulse Rate 86 88 Respiratory Rate 16 16 Blood Pressure 127/68 Pulse Oximetry 98 99 Oxygen Delivery Method Nasal Cannula Room Air Discharge Plan Departure Patient Disposition: Home Clinical Impression: Asthma with acute exacerbation Instructions: DI for Asthma -- Adult Activity Restrictions/Additional Instructions: TAKE MUCINEX TO HELP THIN RESPIRATORY SECRETIONS AND CLEAR YOUR AIRWAY. DRINK PLENTY OF FLUIDS AND GET PLENTY OF REST. FINISH ALL STEROIDS PRESCRIBED. Prescriptions: New prednisone 20 mg tablet 40 mg PO DAILY 5 Days Qty: 10 0RF No Action montelukast 10 mg tablet 10 mg PO DAILY Qty: 90 3RF buspirone 5 mg tablet 7.5 mg PO BID Qty: 75 5RF metformin 500 mg tablet extended release 24hr 500 mg PO TIDWMEAL Qty: 90 11RF dextroamphetamine-amphetamine [Adderall XR] 20 mg capsule,extended release 24hr 20 mg PO BID 30 Days Qty: 60 0RF cetirizine [Zyrtec] 10 mg tablet 10 mg PO DAILY PRN (Reason: allergy symptoms) Qty: 90 3RF hydroxyzine HCl 25 mg tablet 25 mg PO TID PRN (Reason: anxiety) Qty: 30 11RF Wegovy 0.25 mg/0.5 mL pen injector 0.25 mg SUBCUT QWEEK Qty: 2 0RF Rx Instructions: administer weeks 1 through 4 of therapy Wegovy 0.5 mg/0.5 mL pen injector 0.5 mg SUBCUT QWEEK Qty: 2 0RF Rx Instructions: administer weeks 5 through 8 of therapy Wegovy 1 mg/0.5 mL pen injector 1 mg SUBCUT QWEEK Qty: 2 0RF Rx Instructions: administer weeks 9 through 12 of therapy Wegovy 1.7 mg/0.75 mL pen injector 1.7 mg SUBCUT QWEEK Qty: 3 0RF Rx Instructions: administer weeks 13 through 16 of therapy Wegovy 2.4 mg/0.75 mL pen injector 2.4 mg SUBCUT QWEEK Qty: 3 5RF albuterol sulfate 90 mcg/actuation HFA aerosol inhaler 2 puff inhalation Q4-6H PRN (Reason: shortness of breath or wheezing) Qty: 8.5 1RF Referrals: Maurice Sofia DO [Primary Care Provider] - Stand Alone Forms: Patient Portal/API
[2023-07-07] MEDS: ALBUTEROL/IPRATROPIUM 3 ML AMPUL 9 ML INH (10:55)
[2023-07-07] MEDS: DEXAMETHASONE 10 MG/ML VIAL PO (11:00)
[2023-07-07 11:01] VITALS: PULSE 73; RESP 18; O2SAT 100
[2023-07-07 11:10] VITALS: PULSE 86; RESP 16; O2SAT 98
[2023-07-07 11:54] VITALS: BP 127/68; PULSE 88; RESP 16; O2SAT 99
== END 2023-07-07 11:54 | disposition home or self-care (01) ==
PROVIDERS: Emergency Provider Emergency Medicine; PCP Family Medicine
DX: J45.901 Unspecified asthma with (acute) exacerbation (principal); Z79.899 Other long term (current) drug therapy
CPT/HCPCS: 71045; 94150; 94640; 99283; J1100

== ENCOUNTER 2023-08-03 16:31 | Emergency (ER) | payer OTHER, MEDICAID, SELFPAY ==
[2023-08-03 16:37] VITALS: BP 151/56; PULSE 112; RESP 26; TEMP 36.7; O2SAT 99; BMI 42.0
[2023-08-03] MEDS: ALBUTEROL/IPRATROPIUM 3 ML AMPUL INH (16:42)
--- NOTE | 2023-08-03 16:43 | PC.NURSE ---
pt reports that her asthma is triggered by stressful situations. Her has recently been traveling and she has a daughter with special needs at home. 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 Pt states that her sx have gotten progressively worse over the course of the day.
--- NOTE | 2023-08-03 16:44 | DI.RAD.S_ITS ---
PROCEDURE: XR CHEST 2V INDICATIONS: asthma attack TECHNIQUE: 2 views of the chest were acquired. COMPARISON: Merged With [facility], CR, XR CHEST 1V, 07/07/2023, 10:46. FINDINGS: Surgical changes and devices: None. Lungs and pleura: Lungs are clear. No pleural effusions or pneumothorax. Mediastinum: Mediastinal contours are normal. Heart size is normal. Bones and chest wall: No suspicious bony abnormalities. Soft tissues appear unremarkable. IMPRESSION: No acute cardiopulmonary abnormality is seen. Dictated by: Cong Gooden M.D. on 08/03/2023 at 16:11 Approved by: Cong Gooden M.D. on 08/03/2023 at 16:11
[2023-08-03] MEDS: predniSONE 20 MG TABLET 60 MG PO (16:55)
[2023-08-03 17:41] VITALS: PULSE 89; RESP 18; O2SAT 97
[2023-08-03] MEDS: ALBUTEROL 2.5 MG/3 ML NEB (ADULT) INH ×2 (17:47→18:02)
--- NOTE | 2023-08-03 18:26 | ED_ITS ---
HPI - Asthma General Chief Complaint: Asthma Stated Complaint: asthma attack Time Seen by Provider: 08/03/23 16:40 Source: patient Mode of arrival: Ambulatory History of Present Illness HPI Narrative: 37-year-old female. History of asthma. Has been having coughing for the past couple days and today she got into a coughing fit while at work which triggered an asthma attack. No fevers. She did try her inhaler prior to arrival without any improvement of symptoms. Prior to my evaluation she would received steroids and 3 nebulizer treatments and was feeling much better. Related Data Previous Rx's Medication Instructions Recorded cetirizine 10 mg tablet (Zyrtec) 10 mg PO DAILY PRN allergy 09/28/22 symptoms #90 tabs albuterol sulfate 90 mcg/actuation 2 puff inhalation Q4-6H PRN 11/11/22 aerosol inhaler shortness of breath or wheezing #8.5 grams metformin 500 mg tablet,extended 500 mg PO TIDWMEAL pcos #90 tabs 04/01/23 release 24hr Nebulizer #1 ea 07/15/23 albuterol sulfate 2.5 mg/3 mL 2.5 mg (3 mL) inhalation Q6H #75 mL 07/15/23 (0.083 %) solution for nebulization fluticasone propionate 230 1 - 2 puff inhalation BID Asthma 07/21/23 mcg-salmeterol 21 mcg/actuation #12 grams HFA inhaler (Advair HFA) dextroamphetamine-amphetamine ER 20 mg PO BID 30 days #60 caps 07/31/23 20 mg 24hr capsule,extend release (Adderall XR) dextroamphetamine-amphetamine ER 20 mg PO BID 30 days #60 caps 07/31/23 20 mg 24hr capsule,extend release (Adderall XR) dextroamphetamine-amphetamine ER 20 mg PO QAM 30 days #60 caps 07/31/23 20 mg 24hr capsule,extend release (Adderall XR) montelukast 10 mg tablet 10 mg PO DAILY #90 tabs 07/31/23 cyclobenzaprine 10 mg tablet 10 mg PO TID PRN muscle spasm #10 08/03/23 tabs methylprednisolone 4 mg tablets in See Rx Instructions PO .COMPLEX 08/03/23 a dose pack (Medrol (Akash)) #21 ea Allergies Allergy/AdvReac Type Severity Reaction Status Date / Time Penicillins Allergy Verified 07/31/23 16:19 Review of Systems Respiratory Respiratory: Reports system reviewed and no additional complaints, except as documented Musculoskeletal Musculoskeletal: Reports system reviewed and no additional complaints, except as documented Integumentary/Breasts Skin/Breast: Reports system reviewed and no additional complaints, except as documented Allergic/Immunologic Allergic/Immunologic: Reports system reviewed and no additional complaints, except as documented Patient History Medical History (Updated 08/03/23 @ 18:29 by Lester Messina DO) PTSD (post-traumatic stress disorder) (~2009) Autism Fibromyalgia (~2015) Chicken pox (~1989) Ovarian cyst (~2007) Irregular menstrual cycle (~2007) Infertility (~2007) Human papilloma virus (~2012) Fibroids (~2004) Abnormal Pap smear of cervix (~2012) Hyperlipidemia Morbid obesity PCOS (polycystic ovarian syndrome) Anxiety (~2009) ADHD Moderate persistent asthma Surgical History (Updated 12/23/22 @ 19:09 by Robyn Santoyo) Anesthesia History of cosmetic surgery (~07/2019) Status post bilateral breast reduction (~07/2019) History of abdominoplasty (~07/2019) History of section Family History (Updated 12/23/22 @ 19:11 by Robyn Santoyo) Brother Testicular cancer PTSD (post-traumatic stress disorder) ADHD Grandfather Cancer Diabetes mellitus Hypertension Grandmother Diabetes mellitus History of heart disease Hyperlipidemia Hypertension Stroke Family/Other ADHD Autism Social History Smoking Status: Never smoker Smoking Status: Never smoker alcohol intake frequency: 0-2 drinks per day Substance Use Type: does not use Exam Initial Vital Signs Initial Vital Signs: Vital Signs Temperature 98.1 F 08/03/23 16:37 Pulse Rate 112 H 08/03/23 16:37 Respiratory Rate 26 H 08/03/23 16:37 Blood Pressure 151/56 H 08/03/23 16:37 Pulse Oximetry 99 08/03/23 16:37 Oxygen Delivery Method Room Air 08/03/23 16:37 HENMT Head: normal to inspection Resp Effort & Inspection: normal respiratory effort Auscultation: clear to auscultation bilaterally Cardio Rate: regular rate Rhythm: regular rhythm Skin General: no rashes or lesions noted Course Orders Ordered: ED Orders 08/03/23 16:44 Chest [XR chest 2V] Stat Discontinued Medications Albuterol (Albuterol 2.5 Mg/3 Ml Neb (Adult)) 2.5 mg INH [id number] PRN PRN Reason: Shortness Of Breath Last Admin: 08/03/23 18:02 Dose: 2.5 mg Documented By: Admin: 08/03/23 17:47 Dose: 2.5 mg Documented By: SAT Albuterol/Ipratropium (Albuterol/Ipratropium 3 Ml Ampul) 3 ml INH NOW ONE Stop: 08/03/23 16:39 Last Admin: 08/03/23 16:42 Dose: 3 ml Documented By: SAT Cyclobenzaprine HCl (Cyclobenzaprine 10 Mg Tablet) 10 mg PO NOW ONE Stop: 08/03/23 18:34 Last Admin: 08/03/23 18:37 Dose: 10 mg Documented By: ALONA Prednisone (Prednisone 20 Mg Tablet) 60 mg PO NOW ONE Stop: 08/03/23 16:45 Last Admin: 08/03/23 16:55 Dose: 60 mg Documented By: ALONA Vital Signs Vital signs: Vital Signs - 8 hr 08/03/23 16:37 08/03/23 17:41 08/03/23 18:38 Temperature 98.1 F Pulse Rate 112 H 89 95 H Respiratory Rate 26 H 18 22 Blood Pressure 151/56 H 151/56 H Pulse Oximetry 99 97 93 Oxygen Delivery Method Room Air Room Air Room Air MDM - Asthma MDM Narrative Medical decision making narrative: By the time I evaluated the patient she would received 3 nebulizers and steroids and was feeling much better. Chest x-ray shows no signs of pneumonia. Was sent home with a Medrol Dosepak. No indication for antibiotics. She was given return precautions. She expressed understanding and agreement. Discharge Plan Departure Patient Disposition: Home Clinical Impression: Asthma with acute exacerbation Instructions: DI for Asthma -- Adult Activity Restrictions/Additional Instructions: Take all the medications as directed. 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 Return to the emergency department for new or worsening symptoms. Prescriptions: New cyclobenzaprine 10 mg tablet 10 mg PO TID PRN (Reason: muscle spasm) Qty: 10 0RF methylprednisolone [Medrol (Akash)] 4 mg tablets,dose pack See Rx Instructions .ROUTE .COMPLEX Qty: 21 0RF Rx Instructions: orally per package directions No Action metformin 500 mg tablet extended release 24hr 500 mg PO TIDWMEAL Qty: 90 11RF fluticasone propion-salmeterol [Advair HFA] 230-21 mcg/actuation HFA aerosol inhaler 1 - 2 puff inhalation BID Qty: 12 11RF cetirizine [Zyrtec] 10 mg tablet 10 mg PO DAILY PRN (Reason: allergy symptoms) Qty: 90 3RF montelukast 10 mg tablet 10 mg PO DAILY Qty: 90 3RF dextroamphetamine-amphetamine [Adderall XR] 20 mg capsule,extended release 24hr 20 mg PO BID 30 Days Qty: 60 0RF Rx Instructions: rx 1/3 dextroamphetamine-amphetamine [Adderall XR] 20 mg capsule,extended release 24hr 20 mg PO BID 30 Days Qty: 60 0RF Rx Instructions: rx 2/3 dextroamphetamine-amphetamine [Adderall XR] 20 mg capsule,extended release 24hr 20 mg PO QAM 30 Days Qty: 60 0RF Rx Instructions: rx 3/3 albuterol sulfate 2.5 mg /3 mL (0.083 %) solution for nebulization 2.5 mg inhalation Q6H Qty: 75 11RF (DME) Nebulizer See Rx Instructions .Route .MEDSUPPLY Qty: 1 0RF Rx Instructions: As directed albuterol sulfate 90 mcg/actuation HFA aerosol inhaler 2 puff inhalation Q4-6H PRN (Reason: shortness of breath or wheezing) Qty: 8.5 1RF Referrals: Maurice Sofia DO [Primary Care Provider] - Stand Alone Forms: Patient Portal/API
[2023-08-03] MEDS: CYCLOBENZAPRINE 10 MG TABLET PO (18:37)
[2023-08-03 18:38] VITALS: BP 151/56; PULSE 95; RESP 22; O2SAT 93
== END 2023-08-03 18:35 | disposition home or self-care (01) ==
PROVIDERS: Emergency Provider Emergency Medicine; PCP Family Medicine
DX: J45.901 Unspecified asthma with (acute) exacerbation (principal)
CPT/HCPCS: 71046; 94150; 94640; 99283; J7613

== ENCOUNTER → 2023-08-19 08:55 | Outpatient (CLI) | payer OTHER, MEDICAID, SELFPAY | PROVIDERS: PCP Family Medicine; Referring Provider Specialist; Visit Provider Internal Medicine Sleep Medicine | DX: J45.40 Moderate persistent asthma, uncomplicated (principal) | CPT/HCPCS: 94010; 94726; 94729 ==

== ENCOUNTER → 2023-09-27 18:06 | Outpatient (CLI) | payer OTHER, MEDICAID, SELFPAY | PROVIDERS: PCP Family Medicine; Visit Provider Nurse Practitioner Family | DX: R30.0 Dysuria (principal) | CPT/HCPCS: 81002; 87077; 87086; 87186 ==

== ENCOUNTER → 2023-11-11 10:54 | Outpatient (CLI) | payer OTHER, MEDICAID, SELFPAY ==
[2023-11-11 11:28] LABS: Add Manual Diff / Slide Review NO; Basophils Absolute Auto 100 /uL (0-100); Basophils Percent Auto 0.7 % (0-2); Eosinophils Absolute Auto 500 /uL (0-450); Eosinophils Percent Auto 3.7 % (2-4); Hematocrit 43.8 % (36-46); Hemoglobin 14.6 g/dL (12.0-16.0); Lymphocytes Absolute Auto 3300 /uL (1100-4500); Lymphocytes Percent Auto 24.5 % (25-40); Mean Corpuscular HGB Conc 33.4 % (30-36); Mean Corpuscular Hemoglobin 29.6 PG (26-34); Mean Corpuscular Volume 88.4 fL (80-100); Monocytes Absolute Auto 900 /uL (0-900); Monocytes Percent Auto 6.9 % (3-14); Neutrophils Absolute Auto 8600 /uL (1500-7000); Neutrophils Percent Auto 64.2 % (50-75); Platelet Count 372 X10^3/uL (150-400); Red Blood Cell Count 4.95 X10^6/uL (4.0-5.2); Red Cell Distribution Width 14.3 % (11.6-14.8); White Blood Cell Count 13.3 X10^3/uL (4.5-11.0)
[2023-11-11 11:36] LABS: Hemoglobin A1C% w Est Avg Glu 5.3 % (4.0-6.0)
== END ==
PROVIDERS: PCP Family Medicine; Referring Provider Family Medicine; Visit Provider Family Medicine
DX: E66.01 Morbid (severe) obesity due to excess calories (principal); E28.2 Polycystic ovarian syndrome; J45.40 Moderate persistent asthma, uncomplicated
CPT/HCPCS: 36415; 83036; 85025

== ENCOUNTER → 2024-01-21 08:58 | Outpatient (CLI) | payer OTHER, MEDICAID, SELFPAY ==
--- NOTE | 2024-01-21 08:58 | DI.US.S_ITS ---
PROCEDURE: US PELVIC COMPLETE INDICATIONS: DUB; POSSIBLE PCOS TECHNIQUE: Real-time scanning was performed of the pelvic organs, with image documentation. Additional endovaginal scanning was necessary due to incomplete visualization of the adnexal and endometrial structures by transabdominal scanning. COMPARISON: None. FINDINGS: Uterus: Uterus is anteverted and normal in size at 9.2 x 4.5 x 5.7 cm. The myometrium is homogeneous. The endometrium measures 7.5 mm combined thickness. Ovaries: Ovaries are not definitively visualized. There is a 5.0 x 3.6 x 3.6 cm simple cyst in the left adnexa, seen on the transabdominal scan only. Other: No pathologic free abdominal or pelvic fluid. IMPRESSION: 1. Normal ultrasound appearance of uterus. 2. Large simple appearing cyst in the left adnexa measuring 5.0 x 3.6 x 3.6 cm. Consider a follow-up exam in 6-12 weeks. 3. Ovaries are not well seen. We strive to produce accurate, complete, and clear reports of imaging services. To assist us in improving patient care, this report was composed using standard report templates and voice recognition software. Therefore, it may contain abnormal punctuation, insertions and/or omissions. Occasional wrong-word or sound-alike substitutions may occur. Though we review the report and make efforts to correct it, we do recommend that the report be read carefully in proper context to recognize any text inaccuracies. Dictated by: Kiarra Novoa M.D. on 01/21/2024 at 16:48 Approved by: Kiarra Novoa M.D. on 01/22/2024 at 8:27
== END ==
LOC: US 08:58
PROVIDERS: PCP Family Medicine; Referring Provider Family Medicine; Visit Provider Family Medicine
DX: N92.6 Irregular menstruation, unspecified (principal); N94.89 Other specified conditions associated with female genital organs and menstrual cycle
CPT/HCPCS: 76830; 76856

== ENCOUNTER → 2024-03-06 14:32 | Outpatient (CLI) | payer OTHER, SELFPAY ==
--- NOTE | 2024-03-06 14:34 | DI.CT.S_ITS ---
PROCEDURE: CT ABDOMEN PELVIS W CON INDICATIONS: Unspecified abdominal pain TECHNIQUE: After the administration of intravenous contrast, axial sections acquired from the lung bases to the pubic symphysis. Coronal and sagittal reformats were performed. For radiation dose reduction, the following was used: automated exposure control, adjustment of mA and/or kV according to patient size. COMPARISON: [facility], CT, CT ABDOMEN PELVIS W CON, 11/28/2022, 22:36., pelvic ultrasound 01/21/2024 FINDINGS: Image quality: Diagnostic. Lower Chest: No significant findings. ABDOMEN: Liver: No solid mass. Hepatic steatosis Gallbladder: No radiopaque gallstones or wall thickening. Biliary ducts: No biliary dilation. Pancreas: No ductal dilation. Spleen: Size is within normal limits. Adrenal Glands: No adrenal nodules. Kidneys and Ureters: No hydronephrosis. No solid mass. No complex renal cystic lesion which requires follow up. Stomach and Bowel: Normal colonic caliber, without significant wall thickening. Normal caliber appendix. Peritoneum: No abnormal intraperitoneal fluid. No free air. Ventral Wall: No significant ventral hernia. Abdominal Nodes: No retroperitoneal or mesenteric adenopathy by size criteria. Vessels: Aorta and inferior vena cava are normal in size. PELVIS: Pelvic Organs: Left axis simple appearing cystic structure measuring up to 4.1 cm (), previously measuring 4.2 cm on 11/28/2022. Bladder: No bladder wall thickening, accounting for underdistention. Pelvic Nodes: No enlarged lymph nodes. Miscellaneous: No inguinal hernias are seen. Bones: No aggressive osseous abnormality. IMPRESSION: Hepatic steatosis. Left ovarian simple appearing cyst measuring 4.1 cm, stable since 11/28/2022 and recently characterized as a simple appearing cyst on pelvic ultrasound 01/21/2024. Approved by: Deloris Fonseca M.D.,Ph.D. on 03/06/2024 at 18:11
== END ==
PROVIDERS: PCP Family Medicine; Referring Provider Obstetrics & Gynecology; Visit Provider Obstetrics & Gynecology
DX: N92.6 Irregular menstruation, unspecified (principal); N83.202 Unspecified ovarian cyst, left side; R10.32 Left lower quadrant pain; E28.2 Polycystic ovarian syndrome; K76.0 Fatty (change of) liver, not elsewhere classified
CPT/HCPCS: 74177; Q9967

== ENCOUNTER → 2024-11-25 15:49 | Outpatient (CLI) | payer OTHER, SELFPAY ==
--- NOTE | 2024-11-25 15:50 | DI.US.S_ITS ---
PROCEDURE: US PELVIC COMPLETE INDICATIONS: FOLLOW UP LEFT ADNEXAL SIMPLE CYST SINCE 11/2022 TECHNIQUE: Real-time scanning was performed of the pelvic organs, with image documentation. Additional endovaginal scanning was necessary due to incomplete visualization of the adnexal and endometrial structures by transabdominal scanning. COMPARISON: [facility], US, US PELVIC COMPLETE, 01/21/2024, 9:04. FINDINGS: Uterus: Uterus is anteverted and normal in size at 8.4 x 6.8 x 5.4 cm. The myometrium is heterogeneous. The endometrium measures 7.6 mm combined thickness. Mild cervical fluid with questionable septations. Increased vascularity is noted to the cervix. Ovaries: Possible right ovary seen transabdominally only, measures 3.4 x 2.4 x 2.3 cm, with a calculated ovarian volume of 9.8 cc. Flow is not definitively seen, however this is likely secondary to poor penetration. The left ovary is not definitively seen. There is a simple cyst in the left adnexa measuring 4.7 x 3.8 x 3.7 cm, previously 5.0 x 3.6 x 3.6 cm. Other: No pathologic free abdominal or pelvic fluid. IMPRESSION: Technically limited exam. Simple cyst in the left adnexa measuring 4.7 x 3.8 x 3.7 cm, previously 5.0 x 3.6 x 3.6 cm. Recommend continued follow-up ultrasound. No definite left ovarian tissue is identified. Possible right ovary is seen transabdominally only and appears grossly normal. Mild fluid within the cervix with possible septations. Increased vascularity is noted to the cervix. We strive to produce accurate, complete, and clear reports of imaging services. To assist us in improving patient care, this report was composed using standard report templates and voice recognition software. Therefore, it may contain abnormal punctuation, insertions and/or omissions. Occasional wrong-word or sound-alike substitutions may occur. Though we review the report and make efforts to correct it, we do recommend that the report be read carefully in proper context to recognize any text inaccuracies. Dictated by: Paddy Fernández M.D. on 11/26/2024 at 14:03 Approved by: Paddy Fernández M.D. on 11/26/2024 at 14:08
== END ==
PROVIDERS: PCP Family Medicine; Referring Provider Family Medicine; Visit Provider Family Medicine
DX: N83.209 Unspecified ovarian cyst, unspecified side (principal); N94.89 Other specified conditions associated with female genital organs and menstrual cycle
CPT/HCPCS: 76830; 76856

== ENCOUNTER → 2025-05-03 15:16 | Outpatient (CLI) | payer OTHER, SELFPAY ==
--- NOTE | 2025-05-03 15:17 | DI.RAD.S_ITS ---
PROCEDURE: XR KNEE RT 3V INDICATIONS: knee TECHNIQUE: 3 views of the knee were acquired. COMPARISON: None. FINDINGS: Bones: No fractures or dislocations. Moderate medial and lateral tibiofemoral and patellofemoral compartment narrowing with associated osteophytosis. Small cortical fragment medially adjacent to the medial femoral condyle in the vicinity of the proximal insertion site of the medial collateral ligament suggestive of remote MCL injury. No suspicious bony lesions. Soft tissues: Small joint effusion. No suspicious soft tissue calcifications. IMPRESSION: KL grade 2 tricompartmental osteoarthritis and probable sequelae of remote MCL injury without evidence of acute bony abnormality. Small joint effusion. Dictated by: Roly Newberry M.D. on 05/03/2025 at 21:45 Approved by: Roly Newberry M.D. on 05/03/2025 at 21:53
== END ==
PROVIDERS: PCP Family Medicine; Referring Provider Family Medicine; Visit Provider Family Medicine
DX: S86.911A Strain of unspecified muscle(s) and tendon(s) at lower leg level, right leg, initial encounter (principal); M17.11 Unilateral primary osteoarthritis, right knee; M25.461 Effusion, right knee; X58.XXXA Exposure to other specified factors, initial encounter
CPT/HCPCS: 73562